=== PATIENT | male | born 1960 | race Caucasian/White ===

== ENCOUNTER 2017-10-30 11:57 | Emergency (ER) | payer MEDICARE ==
[2017-10-30 12:20] VITALS: BP 141/93
[2017-10-30] MEDS ORDERED: KETOROLAC TROMETHAMINE INJ/PF 30 MG/1 ML SDV IM ONE (13:04)
[2017-10-30] MEDS ORDERED: DEXAMETHASONE SOD PHOS INJ 10 MG/1 ML VIAL IM ONE (13:04)
--- NOTE | 2017-10-30 13:05 | ER Document Report ---
HPI - HPI Pain Level: 5 Notes: Patient is a 57-year-old male with a history of chronic low back pain who presents to the ED complaining of acute on chronic pain status post injury 3 days ago. Patient states that he was moving furniture and was lifting heavy objects when he first noticed his pain. Patient states that the pain is to his lower back that is made worse by truncal movements, bending, and twisting. Patient states that the pain does not radiate. He has not had any loss of control bowel or bladder. He is eating and drinking without difficulties. He is urinating normally and having normal bowel movements. He denies any surgeries or injections in his back. Denies any IV drug use. Denies any history of diabetes or other immunocompromised medical conditions as well as previous spinal abscess. Patient does admit to smoking. Patient moved to the area from [place]. Denies any headache, fever, URI, sore throat, chest pain, palpitations, syncope, cough, shortness of breath, wheeze, dyspnea, abdominal pain, nausea/vomiting/diarrhea, urinary retention, dysuria, hematuria, loss of control of bowel or bladder, numbness/tingling, saddle anesthesia, muscle paralysis/weakness, or rash. - ROS Systems Reviewed and Negative: Yes All other systems reviewed and negative Past Medical History - Social History Smoking Status: Current Every Day Smoker Family History: Reviewed & Not Pertinent Vertical Provider Document - CONSTITUTIONAL Agree With Documented VS: Yes Notes: PHYSICAL EXAMINATION: GENERAL: Well-appearing, well-nourished and in no acute distress. LUNGS: Breath sounds clear to auscultation bilaterally and equal. No wheezes rales or rhonchi. HEART: Regular rate and rhythm without murmurs, rubs, gallops. ABDOMEN: Soft, nontender, nondistended abdomen. No guarding, no rebound. No masses appreciated. Normal bowel sounds present. No CVA tenderness bilaterally. No pulsatile mass Musculoskeletal: LE's b/l: FROM to passive/active. Strength 5+/5. No deficits noted. No bony tenderness of extremities. Back: LROM to passive/active to flexion/extension due to discomfort. Strength 5+/5. No vertebral point tenderness, stepoffs, or deformities. No other bony tenderness, erythema, swelling, or ecchymosis. SLR negative b/l. + mild tenderness to the L-paraspinal mm b/l (correlates with pain described). Mild spasming. No SI jt tenderness. No foot drop Extremities: No cyanosis, clubbing, or edema b/l. Peripheral pulses 2+. Capillary refill less than 2 seconds. NEUROLOGICAL: Normal speech, ataxic gait. Normal sensory, motor exams. Reflexes 2+ b/l. PSYCH: Normal mood, normal affect. SKIN: Warm, Dry, normal turgor, no rashes or lesions noted. - INFECTION CONTROL TRAVEL OUTSIDE OF THE [place] IN LAST 30 DAYS: No Course - Re-evaluation Re-evalutation: 10/30/17 13:11 Patient is an afebrile, well-hydrated, 57-year-old male who presents to the ED with acute on chronic low back pain, suspect muscle strain. Vitals are acceptable. PE is otherwise unremarkable for any focal neurological deficits. Patient is nontoxic-appearing. Patient has no significant tachycardia, hypoxia , or tachypnea. No labs or imaging warranted at this time based on H&P. Low suspicion for any meningitis, fracture, expanding/ruptured AAA, cauda equina syndrome, epidural mass lesion/abscess, herniated disc causing severe spinal stenosis, or other systemic infection at this time. Patient is aware that his condition can change from initial presentation and that he needs monitor symptoms closely for any acute changes. Patient given Toradol and Decadron today. I will send him home with a prescription for naproxen and baclofen. Conservative measures otherwise for symptoms. Recheck with your PCM in 3-5 days. Consider consult with orthopedic/physical therapy. Return to the ED with any worsening/concerning symptoms otherwise as reviewed discharge. Patient is in agreement. - Vital Signs Vital signs: Temp Pulse Resp BP Pulse Ox 98.3 F 88 18 141/93 H 97 10/30/17 12:18 10/30/17 12:18 10/30/17 12:18 10/30/17 12:18 10/30/17 12:18 Discharge - Discharge Clinical Impression: Low back pain Qualifiers: Chronicity: acute Back pain laterality: bilateral Sciatica presence: without sciatica Qualified Code(s): M54.5 - Low back pain Condition: Stable Disposition: HOME, SELF-CARE Instructions: Low Back Pain ([facility]), Muscle Strain ([facility]), Stretching Exercises for the Back ([facility]) Additional Instructions: Rest, Ice, Compression, Elevation Tylenol/ibuprofen as needed Light stretches daily Strength exercises as able Moist heat and massage may help F/u with your PCP in 3-5 days for a recheck Consider consult(s) with Orthopedics/physical therapy for ongoing/worsening symptoms Return to the ED with any worsening symptoms and/or development of fever, headache, chest pain, palpitations, syncope, shortness of breath, trouble breathing, abdominal pain, n/v/d, blood in stool/urine, loss of control of bowel /bladder, urinary retention, muscle weakness/paralysis, saddle anesthesia, numbness/tingling, or other worsening symptoms that are concerning to you. Prescriptions: Baclofen [Baclofen 10 mg Tablet] 5 - 10 mg PO BID PRN #10 tablet PRN Reason: Naproxen 500 mg PO BID PRN #30 tablet PRN Reason: Forms: Elevated Blood Pressure, Smoking Cessation Education Referrals: [facility] [Provider Group] - Follow up as needed
== END 2017-10-30 13:44 | disposition home or self-care (01) ==
LOC: ER 11:57
DX: G89.29 Other chronic pain (principal); M54.5 Low back pain; F17.200 Nicotine dependence, unspecified, uncomplicated
CPT/HCPCS: 99283; 96372; J1885; J1100

== ENCOUNTER 2017-12-18 19:08 | Observation (INO) | payer MEDICARE ==
--- NOTE | 2017-12-18 19:45 | ER Document Report ---
ED Medical Screen (RME) - General Chief Complaint: Abdominal Pain Stated Complaint: ABDOMINAL PAIN Time Seen by Provider: 12/18/17 19:41 Notes: RAPID MEDICAL EVALUATION DISCLOSURE I have seen this patient as part of a Rapid Medical Evaluation and, if applicable, placed any initially appropriate orders. The patient will be seen and fully evaluated, including a full history and physical exam, by a provider ( in Main ED or Fast Track) when a room becomes available. 57-year-old male PMH coronary disease here with complaints of chest pain nonradiating that started earlier this morning. He has also had associated shortness of breath nausea vomiting epigastric pain and hiccups. He has not tried anything for the symptoms but states that he just got his Zantac refilled 30 minutes prior to arrival. Denies any prior history of pancreatitis. EXAM CTAB RRR Mild epigastric TTP TRAVEL OUTSIDE OF THE [place] IN LAST 30 DAYS: No - Related Data Allergies/Adverse Reactions: tramadol Allergy (Verified 12/18/17 19:09) Past Medical History - Social History Chew tobacco use (# tins/day): No Frequency of alcohol use: Rare Drug Abuse: None Renal/ Medical History: Denies: Hx Peritoneal Dialysis Physical Exam - Vital signs Vitals: Temp Pulse Resp BP Pulse Ox 98.0 F 72 22 H 149/90 H 97 12/18/17 19:21 12/18/17 19:21 12/18/17 19:21 12/18/17 19:21 12/18/17 19:21 Course - Vital Signs Vital signs: Temp Pulse Resp BP Pulse Ox 98.0 F 72 22 H 149/90 H 97 12/18/17 19:21 12/18/17 19:21 12/18/17 19:21 12/18/17 19:21 12/18/17 19:21
[2017-12-18] MEDS ORDERED: LIDOCAINE 2% VISCOUS SOLN 20 ML UDCUP PO ONE (19:54)
[2017-12-18] MEDS ORDERED: MAG HYDROX/AL HYDROX/SIMETH SUSP 30 ML UDCUP PO ONE (20:12)
[2017-12-18 20:27] LABS: ABSOLUTE EOSINOPHILS # (AUTO) 0.1 10^3/uL (0.0-0.6); ABSOLUTE LYMPHOCYTES (AUTO) 1.2 10^3/uL (0.5-4.7); ABSOLUTE MONOCYTES (AUTO) 0.6 10^3/uL (0.1-1.4); ABSOLUTE NEUT (AUTO) 6.3 10^3/uL (1.7-8.2); BASOPHILS % (AUTO) 0.6 % (0-2); EOSINOPHILS % (AUTO) 0.8 % (0-6); HEMATOCRIT 50.3 % (37.9-51.0); HEMOGLOBIN 16.9 g/dL (13.5-17.0); LYMPHOCYTES % (AUTO) 15.1 % (13-45); MEAN CORPUSCULAR HEMOGLOBIN 31.8 pg (27.0-33.4); MEAN CORPUSCULAR HGB CONC 33.6 g/dL (32.0-36.0); MEAN CORPUSCULAR VOLUME 95 fl (80-97); MONOCYTES % (AUTO) 6.9 % (3-13); PLATELET COUNT 257 10^3/uL (150-450); RED BLOOD COUNT 5.31 10^6/uL (4.35-5.55); RED CELL DISTRIBUTION WIDTH 13.5 % (11.5-14.0); SEGMENTED NEUTROPHILS % (AUTO) 76.6 % (42-78); TOTAL CELLS COUNTED % (AUTO) 100 %; WHITE BLOOD COUNT 8.3 10^3/uL (4.0-10.5)
[2017-12-18 20:40] LABS: ALANINE AMINOTRANSFERASE 22 U/L (21-72); ALBUMIN 4.6 g/dL (3.5-5.0); ALKALINE PHOSPHATASE 88 U/L (38-126); ANION GAP 11 (5-19); ASPARTATE AMINO TRANSFERASE 18 U/L (17-59); BILIRUBIN,DIRECT 0.3 mg/dL (0.0-0.4); BILIRUBIN,TOTAL 0.7 mg/dL (0.2-1.3); BLOOD UREA NITROGEN 14 mg/dL (7-20); CALCIUM 10.2 mg/dL (8.4-10.2); CARBON DIOXIDE 32 mmol/L (22-30); CHLORIDE 103 mmol/L (98-107); GLUCOSE 113 mg/dL (75-110); LIPASE 120.6 U/L (23-300); POTASSIUM 4.4 mmol/L (3.6-5.0); SODIUM 145.9 mmol/L (137-145); TOTAL PROTEIN 7.6 g/dL (6.3-8.2)
--- NOTE | 2017-12-18 21:00 | RADIOLOGY REPORT (SQ) ---
EXAM DESCRIPTION: ACUTE ABDOMEN SERIES COMPLETED DATE/TIME: 12/18/2017 8:33 pm REASON FOR STUDY: chest and epigastric pain COMPARISON: None. NUMBER OF VIEWS: Three views. TECHNIQUE: Frontal chest, supine abdomen and upright/decubitus abdomen radiographic images acquired. LIMITATIONS: None. FINDINGS: CHEST: Lungs clear of infiltrates. Chronic appearing interstitial changes with scarring i n the left costophrenic angle. FREE AIR: None. No abnormal gas collections. BOWEL GAS PATTERN: Nonobstructive pattern. No dilated loops or air fluid levels. CALCIFICATIONS: No suspicious calcifications. HARDWARE: None in the abdomen. Coronary bypass hardware in the chest SOFT TISSUES: No gross mass or suggestion of organomegaly. BONES: No acute fracture. No worrisome bone lesions. OTHER: No other significant finding. IMPRESSION: NO RADIOGRAPHIC EVIDENCE FOR ACUTE ABDOMINAL DISEASE. TECHNICAL DOCUMENTATION: JOB ID: [id number] [employer]- All Rights Reserved Reading location - IP/workstation name: [email or web address]
--- NOTE | 2017-12-18 22:47 | ER Document Report ---
ED General - General Chief Complaint: Abdominal Pain Stated Complaint: ABDOMINAL PAIN Time Seen by Provider: 12/18/17 19:41 Notes: Patient is a 57-year-old male with a history of coronary disease who presents with complaint of pain that is in the lower chest and epigastrium and radiates up into the chest. He describes pain as sharp. Spleen ongoing all day and is felt short of breath with the. Some nausea but no vomiting. No fevers. He is a smoker. He had a triple-vessel bypass in 2010. He says be on medications for high blood pressure and high cholesterol. He has not been taking those for close to months being that he moved here a month ago. He says he was going to establish himself with Dr. Ward but he did not yet have a medical card and therefore has not been able to see Dr. Burnett yet and has not yet established himself with Dr. Burnett. Patient has been without medications now for over a week. He does smoke. He says the pain is having now feels exactly like the pain he had when he had his heart attack in 2010. No heart cath or stress test since 2010. TRAVEL OUTSIDE OF THE [place] IN LAST 30 DAYS: No - Related Data Allergies/Adverse Reactions: tramadol Allergy (Verified 12/18/17 19:09) Past Medical History - Social History Smoking Status: Current Every Day Smoker Chew tobacco use (# tins/day): No Frequency of alcohol use: Rare Drug Abuse: None Family History: Reviewed & Not Pertinent Patient has suicidal ideation: No Patient has homicidal ideation: No - Past Medical History Cardiac Medical History: Reports: Hx Heart Attack, Hx Hypertension Pulmonary Medical History: Reports: Hx COPD Renal/ Medical History: Denies: Hx Peritoneal Dialysis GI Medical History: Reports: Hx Gastroesophageal Reflux Disease Past Surgical History: Reports: Hx Cardiac Surgery - bipass Review of Systems - Review of Systems Notes: My Normal Review Basic REVIEW OF SYSTEMS: CONSTITUTIONAL : Denies fever, chills, or sweats. Denies recent illness. EENT: Denies eye, ear, throat, or mouth pain or symptoms. Denies nasal or sinus congestion. CARDIOVASCULAR: Has chest pain RESPIRATORY: Denies cough, cold, or chest congestion. Denies shortness of breath, difficulty breathing, or wheezing. GASTROINTESTINAL: Gastric abdominal pain. Denies nausea, vomiting, or diarrhea. GENITOURINARY: Denies difficulty urinating, painful urination, burning, frequency, or blood in urine. MUSCULOSKELETAL: Denies neck or back pain or joint pain or swelling. SKIN: Denies rash or skin lesions. NEUROLOGICAL: Denies altered mental status or loss of consciousness. Denies headache. Denies weakness or paralysis or loss of use of either side. Denies problems with gait or speech. Denies sensory or motor loss. ALL OTHER SYSTEMS REVIEWED AND NEGATIVE. Physical Exam - Vital signs Vitals: Temp Pulse Resp BP Pulse Ox 98.0 F 72 22 H 149/90 H 97 12/18/17 19:21 12/18/17 19:21 12/18/17 19:21 12/18/17 19:21 12/18/17 19:21 - Notes Notes: General Appearance: Well nourished, alert, cooperative, no acute distress, no obvious discomfort. Vitals: reviewed, See vital signs table. Head: no swelling or tenderness to the head Eyes: PERRL, EOMI, Conjuctiva clear Mouth: No decreasd moisture Lungs: No wheezing, No rales, No rhonci, No accessory muscle use, good air exchange bilaterally. Heart: Normal rate, Regular rythm, No murmur, no rub Chest wall: No tenderness to palpation of chest wall. Abdomen: Normal BS, soft, No rigidity, epigastric abdominal tenderness, No guarding, no rebound, no abdominal masses, no organomegaly Extremities: strength 5/5 in all extremities, good pulses in all extremities, no swelling or tenderness in the extremities, no edema. Skin: warm, dry, appropriate color, no rash Neuro: speech clear, oriented x 3, normal affect, responds appropriately to questions. Course - Re-evaluation Re-evalutation: 12/19/17 00:29 Patient continues have chest pain despite the nitro. We therefore repeated the troponin has remained normal. I did speak with hospitalist, Dr. Gant, agrees with the patient. I did not call Dr. Ward this patient has not yet seen Dr. Ward and has not yet established himself with Dr. Ward as of yet. Patient's pain seems atypical and that is epigastric radiating up into his chest; however, patient has had similar pains in 2010 when his heart attack. Therefore feel that admission for observation and rule out is appropriate. Dictation of this chart was performed using voice recognition software; therefore, there may be some unintended grammatical errors. - Vital Signs Vital signs: Temp Pulse Resp BP Pulse Ox 98.0 F 72 22 H 149/90 H 97 12/18/17 19:21 12/18/17 19:21 12/18/17 19:21 12/18/17 19:21 12/18/17 19:21 - Laboratory Result Diagrams: 12/18/17 20:10 12/18/17 20:10 Laboratory results interpreted by me: 12/18/17 20:10 Sodium 145.9 H Carbon Dioxide 32 H Glucose 113 H - EKG Interpretation by Me Additional EKG results interpreted by me: 12/18/17 22:46 EKG is reviewed and interpreted by me. EKG shows normal sinus rhythm with a rate of [address] segment elevation or depression. No ischemic T-wave inversions. SD interval, QRS duration are within normal range. QTc interval is prolonged. No old EKG available for comparison. Discharge - Discharge Clinical Impression: Chest pain Qualifiers: Chest pain type: unspecified Qualified Code(s): R07.9 - Chest pain, unspecified Condition: Stable Disposition: ADMITTED OBSERVATION Admitting Provider: Hospitalist Unit Admitted: Telemetry
[2017-12-18] MEDS ORDERED: NITROGLYCERIN 2% OINTMENT 1 GM PACKET TP ONE (22:54)
[2017-12-19] MEDS ORDERED: ASPIRIN 325 MG TABLET PO ONE (00:17)
[2017-12-19] MEDS ORDERED: MORPHINE SULFATE 10 MG/ML INJ IV ONE (00:17)
[2017-12-19] MEDS ORDERED: HYDRALAZINE HCL INJ/PF 20 MG/1 ML SDV IV PRN (00:27)
[2017-12-19] MEDS ORDERED: LACTULOSE SYRUP 20 GM/30 ML UDCUP PO ONE (00:27)
[2017-12-19] MEDS ORDERED: NITROGLYCERIN 0.4 MG/TAB 25 TAB/BOTTLE SL PRN (00:29)
[2017-12-19] MEDS ORDERED: ATORVASTATIN CALCIUM 80 MG TABLET PO ONE (00:45)
[2017-12-19] MEDS ORDERED: PROMETHAZINE HCL 25 MG TABLET PO ONE (01:14)
--- NOTE | 2017-12-19 02:06 | PDOC H&P ---
History of Present Illness Admission Date/PCP: 12/19/17 00:42 Patient complains of: Chest and abdominal pain History of Present Illness: JAMEEL HORN is a 57 year old male with history of quadruple bypass 2011, gastritis, with ongoing tobacco dependence and medication noncompliance greater than 2 months. Patient presents with 18 hours of intermittent chest and abdominal pain associated with dyspepsia, burping and gas. It is dull in nature 3 out of 5 intensity waxing and waning. Patient had no relief from Zantac or sublingual nitroglycerin. Initial workup is unremarkable with exception to an abdominal series showing constipation. He is referred to the hospitalist for admission. Past Medical History Cardiac Medical History: Reports: Coronary Artery Disease, Myocardial Infarction , Hypertension Pulmonary Medical History: Reports: Chronic Obstructive Pulmonary Disease (COPD) GI Medical History: Reports: Gastroesophageal Reflux Disease Past Surgical History Past Surgical History: Reports: Coronary Artery Bypass Graft Social History Information Source: Patient Smoking Status: Current Every Day Smoker Frequency of Alcohol Use: None - Advance Directive Resuscitation Status: Full Code Family History Family History: CAD, COPD Parental Family History Reviewed: Yes Children Family History Reviewed: Yes Sibling(s) Family History Reviewed.: Yes Medication/Allergy Home Medications: Baclofen [Baclofen 10 mg Tablet] 5 - 10 mg PO BID PRN #10 tablet 10/30/17 Naproxen 500 mg PO BID PRN #30 tablet 10/30/17 Allergies/Adverse Reactions: tramadol Allergy (Verified 12/18/17 19:09) Review of Systems Constitutional: ABSENT: chills, fever(s), headache(s), weight gain, weight loss Eyes: ABSENT: visual disturbances Ears: ABSENT: hearing changes Cardiovascular: ABSENT: chest pain, dyspnea on exertion, edema, orthropnea, palpitations Respiratory: ABSENT: cough, hemoptysis Gastrointestinal: ABSENT: abdominal pain, constipation, diarrhea, hematemesis, hematochezia, nausea, vomiting Genitourinary: ABSENT: dysuria, hematuria Musculoskeletal: ABSENT: joint swelling Integumentary: ABSENT: rash, wounds Neurological: ABSENT: abnormal gait, abnormal speech, confusion, dizziness, focal weakness, syncope Psychiatric: ABSENT: anxiety, depression, homidical ideation, suicidal ideation Endocrine: ABSENT: cold intolerance, heat intolerance, polydipsia, polyuria Hematologic/Lymphatic: ABSENT: easy bleeding, easy bruising Physical Exam Vital Signs: Temp Pulse Resp BP Pulse Ox 98.0 F 72 22 H 149/90 H 97 12/18/17 19:21 12/18/17 19:21 12/18/17 19:21 12/18/17 19:21 12/18/17 19:21 General appearance: PRESENT: no acute distress, well-developed, well-nourished Head exam: PRESENT: atraumatic, normocephalic Eye exam: PRESENT: conjunctiva pink, EOMI, PERRLA. ABSENT: scleral icterus Ear exam: PRESENT: normal external ear exam Mouth exam: PRESENT: moist, tongue midline Neck exam: ABSENT: carotid bruit, JVD, lymphadenopathy, thyromegaly Respiratory exam: PRESENT: clear to auscultation jada. ABSENT: rales, rhonchi, wheezes Cardiovascular exam: PRESENT: RRR. ABSENT: diastolic murmur, rubs, systolic murmur Pulses: PRESENT: normal dorsalis pedis pul Vascular exam: PRESENT: normal capillary refill GI/Abdominal exam: PRESENT: diminished bowel sounds, hypoactive bowel sounds, normal bowel sounds, soft, tenderness. ABSENT: ascites, distended, guarding, mass, organolmegaly, rebound Rectal exam: PRESENT: deferred Extremities exam: PRESENT: full ROM. ABSENT: calf tenderness, clubbing, pedal edema Neurological exam: PRESENT: alert, awake, oriented to person, oriented to place , oriented to time, oriented to situation, CN II-XII grossly intact. ABSENT: motor sensory deficit Psychiatric exam: PRESENT: appropriate affect, normal mood. ABSENT: homicidal ideation, suicidal ideation Skin exam: PRESENT: dry, intact, warm. ABSENT: cyanosis, rash Results Impressions: Acute Abdomen Series 12/18/17 19:44 IMPRESSION: NO RADIOGRAPHIC EVIDENCE FOR ACUTE ABDOMINAL DISEASE. Assessment & Plan - Diagnosis (1) Chest pain Qualifiers: Chest pain type: unspecified Qualified Code(s): R07.9 - Chest pain, unspecified Is this a current diagnosis for this admission?: Yes Plan: Atypical chest pain though the patient's pain is atypical there are multiple risk factors for coronary artery disease and subsequently will observe and evaluation of acute coronary syndrome versus coronary artery disease with anginal equivalents. Cardiac monitoring blood pressure Q6 hours ,TSH, lipid profile, serial cardiac enzymes and cardiac stress test (2) Abdominal pain Is this a current diagnosis for this admission?: Yes Plan: Likely secondary to constipation, lactulose trial initiated (3) Tobacco abuse Is this a current diagnosis for this admission?: Yes Plan: Tobacco Dependence patient received tobacco cessation counseling and offered nicotine replacement options - Time Time Spent: 30 to 50 Minutes
[2017-12-19] MEDS ORDERED: KETOROLAC TROMETHAMINE INJ/PF 30 MG/1 ML SDV IV ONE (05:00)
[2017-12-19 07:28] LABS: TROPONIN I < 0.012 ng/mL
--- NOTE | 2017-12-19 07:45 | EKG REPORT ---
SEVERITY:- ABNORMAL ECG - SINUS RHYTHM PROBABLE LEFT ATRIAL ABNORMALITY INFERIOR INFARCT, AGE INDETERMINATE LATERAL LEADS ARE ALSO INVOLVED BORDERLINE PROLONGED QT INTERVAL : Confirmed by: Edmund Cruz MD 19-Dec-2017 07:45:01
[2017-12-19] MEDS ORDERED: PROMETHAZINE HCL INJ 25 MG/1 ML VIAL ONE (11:11)
[2017-12-19] MEDS: DOCUSATE SODIUM 100 MG CAPSULE PO SCH (11:12)
[2017-12-19 12:49] LABS: CREATINE KINASE MB 0.36 ng/mL (<4.55)
[2017-12-19 12:52] LABS: TROPONIN I < 0.012 ng/mL
[2017-12-19] MEDS ORDERED: REGADENOSON INJ 0.4 MG/5 ML DISP.SYRIN IV ONE (13:29)
[2017-12-19] MEDS ORDERED: MAG HYDROX/AL HYDROX/SIMETH SUSP 30 ML UDCUP PO ONE (14:58)
[2017-12-19] MEDS ORDERED: LIDOCAINE 2% VISCOUS SOLN 20 ML UDCUP PO ONE (14:58)
[2017-12-19] MEDS: HYDROCODONE/ACETAMINOPHEN 7.5-325 MG TABLET PO PRN ×2 (15:07→22:05)
[2017-12-19] MEDS: PROMETHAZINE HCL INJ 25 MG/1 ML VIAL IV PRN ×2 (15:18→22:05)
[2017-12-19] MEDS: LANSOPRAZOLE 30 MG TAB.RAP.DR PO SCH (17:40)
--- NOTE | 2017-12-19 17:57 | DRAGON STRESS TEST REPORT ---
INTRAVENOUS LEXISCAN CARDIOLITE STRESS TEST USING SINGLE PHOTON EMMISION COMPUTERIZED TOMOGRAPHIC. DATE OF PROCEDURE: December 19, 2017 INDICATION : Chest pain CARDIAC RISK FACTORS: Known CAD with previous CABG, tobacco abuse RESTING EKG: Sinus rhythm, abnormal Q waves inferior and lateral chest leads indicative of inferolateral myocardial infarction STRESS EKG: No significant ST segment changes noted with LexiScan bolus REASON FOR TERMINATION: Protocol. PROCEDURE REPORT: Baseline heart rate 67 beats per minute with blood pressure of 126/82. Patient had no significant complaints. Patient was bolused with Lexiscan 0.4 mg intravenously followed by saline bolus. Heart rate at 2 minutes post bolus 100 with a blood pressure of 109/74. 3 minutes post bolus heart rate 96 with blood pressure of 122/79. No significant EKG changes were noted. Patient had no significant complaints during the procedure or postprocedure. CONCLUSIONS: Normal EKG and hemodynamic response to IV LexiScan. NUCLEAR DATA: At rest the patient was given 15.22 millicuries of technetium 99 sestamibi injected intravenously. As per protocol rest gated SPECT images were obtained. On day of stress test, the patient was given intravenous LexiScan at a dose of 0.4 mg in 5 mL intravenously, followed by flush with normal saline. Subsequently the stress dose of 42.8 millicuries of technetium 99 sestamibi was injected intravenously. As per protocol stress gated images were obtained. NUCLEAR INTERPRETATION: Both raw and processed data were used for interpretation. Visual, qualitative, computer-generated quantitative data was used. There was good myocardial uptake of technetium compound. Motion artifact and soft tissue attenuations were noted. Increased visceral uptake was noted. No definitive areas of transient perfusion defect noted, severe fixed defect noted involving the inferolateral and lateral wall of the left ventricle. May be minimal area of surrounding transient perfusion defect. EKG gated imaging showed LV EF at 25 %, rest and stress gated EF similar visually diffuse hypokinesia with more marked inferolateral hypokinesia noted. T. I D. ratio was 1.41 but visually seems not significant. Lung heart ratio noted to be within normal limits 0.39. No significant extracardiac and abnormal radiotracer activities were noted. RV free wall uptake was noted to be WNL. IMPRESSION: Also refer to comments under nuclear interpretation. Also test results needs to be interpreted in the context of pretest probability. 1. No definitive areas of transient perfusion defect noted. 2. Severe fixed defect noted involving the inferolateral and lateral wall of the left ventricle. This is indicative of a prior myocardial infarction. 3. EKG gated imaging shows left ventricular ejection fraction of approx. 25 %. Inferolateral and lateral wall hypokinesia noted. Computer-generated TID ratio is abnormal but visually did not seem significant. 4. Clinical correlation requested as occasionally single vessel disease or balanced ischemia could be missed. In approximately 10% of the cases Lexiscan may not cause adequate vasodilatory stress. RECOMMENDATIONS: Aggressive risk factor modification and medical management. Further evaluation may be needed if continued symptoms or other high risk indicators are noted on clinical evaluation. Close cardiology follow-up is also recommended. Clinical correlation with echocardiogram derived ejection fraction. Inability to exercise by itself can lead to increased cardiovascular event risks. Consider cardiology consultation and or follow-up if clinically indicated. I am available for cardiology evaluation and consultation if requested by the manager of medical, unless patient already has a unload associate. TIESHA
[2017-12-19 18:18] LABS: CREATINE KINASE MB 0.28 ng/mL (<4.55)
[2017-12-19 18:21] LABS: TROPONIN I < 0.012 ng/mL
--- NOTE | 2017-12-19 19:15 | PDOC PROGRESS REPORT ---
Subjective Progress Note for:: 12/19/17 Subjective:: He complained of very severe epigastric pain earlier today. He says he has had this for quite some time and that he takes Zantac for it when he needs to. I started him on some Prevacid and gave him some Maalox to good effect. Reason For Visit: CHEST AND ABD PAIN CAD Physical Exam Vital Signs: Temp Pulse Resp BP Pulse Ox 98.3 F 60 16 125/79 96 12/19/17 13:12 12/19/17 15:00 12/19/17 13:12 12/19/17 13:12 12/19/17 13:12 Intake & Output 12/18/17 12/19/17 12/20/17 05:59 05:59 05:59 Weight 204 lb 15.42 oz 204 lb 12.951 oz Results Laboratory Results: 12/19/17 12/19/17 12/19/17 06:00 11:30 17:25 CK-MB (CK-2) 0.40 0.36 0.28 Troponin I < 0.012 < 0.012 < 0.012 Impressions: Acute Abdomen Series 12/18/17 19:44 IMPRESSION: NO RADIOGRAPHIC EVIDENCE FOR ACUTE ABDOMINAL DISEASE. Assessment & Plan - Diagnosis (1) Abdominal pain Qualifiers: Abdominal location: epigastric Qualified Code(s): R10.13 - Epigastric pain Is this a current diagnosis for this admission?: Yes Plan: Sounds like he has gastritis due to NSAIDs. I will put him on scheduled PPI therapy (2) Chest pain Qualifiers: Chest pain type: unspecified Qualified Code(s): R07.9 - Chest pain, unspecified Is this a current diagnosis for this admission?: Yes Plan: I think the pain that he came in with is really from his stomach. However, the stress test showed significant cardiomyopathy. He is not on any medications, though he has a history of coronary artery disease. I do not know what his baseline is. I will start him on an SALINA inhibitor, beta-oh, get an echo since the nuclear study can significantly understate ejection fraction, and consult cardiology. (3) Tobacco abuse Is this a current diagnosis for this admission?: Yes Plan: Nicotine replacement (4) CAD (coronary artery disease) Is this a current diagnosis for this admission?: Yes Plan: History of coronary artery bypass in 2010. Not on any medications, does not appear to be following with a medical chemist.
[2017-12-19] MEDS ORDERED: NICOTINE 21 MG/24 HR PATCH.TD24 TD SCH (20:00)
--- NOTE | 2017-12-19 20:37 | PDOC CONSULTATION ---
Consultation Consult Date: 12/19/17 Attending physician:: MARIMAR WILKERSON Consult reason:: Depressed LVEF History of Present Illness Admission Date/PCP: 12/19/17 00:42 Patient complains of: Epigastric discomfort History of Present Illness: JAMEEL HORN is a 57 year old male with history of quadruple bypass 2010, gastritis, with ongoing tobacco dependence and medication noncompliance greater than 2 months. Patient presents with 18 hours of intermittent chest and abdominal pain associated with dyspepsia, burping and gas. It is dull in nature 3 out of 5 intensity waxing and waning. Patient had no relief from Zantac or sublingual nitroglycerin. Initial workup is unremarkable with exception to an abdominal series showing constipation. He is referred to the hospitalist for admission. This history obtained by the hospitalist was reviewed and confirmed with the patient. Patient is denying any chest pain. Patient does describe history of intermittent dizziness and occasional palpitations. Patient describes history of prior myocardial infarction and also coronary artery bypass graft surgery in 2010 with four-vessel bypass. Patient tells me that he had a previous echocardiogram sometime ago at an outside institution where he was told to have weak heart muscles. He was being considered for defibrillator placement but he declined any mechanical stuff in his body. He understands that because of weak heart, he is at increased risk of sudden cardiac but he still does not want to consider defibrillator placement at this time. Patient tells me that his previous customer service representative teacher was adjusting medication to his strength in his heart but he ran out of his medication. Patient surrogate decision maker is his Past Medical History Cardiac Medical History: Reports: Coronary Artery Disease, Myocardial Infarction , Hypertension Pulmonary Medical History: Reports: Chronic Obstructive Pulmonary Disease (COPD) GI Medical History: Reports: Gastroesophageal Reflux Disease Past Surgical History Past Surgical History: Reports: Coronary Artery Bypass Graft Social History Information Source: Patient Smoking Status: Current Every Day Smoker Frequency of Alcohol Use: None Drugs: None - Advance Directive Resuscitation Status: Full Code Surrogate healthcare decision maker:: Patient's is the surrogate decision-maker Family History Family History: CAD, COPD Parental Family History Reviewed: Yes Children Family History Reviewed: Yes Sibling(s) Family History Reviewed.: Yes Medication/Allergy Home Medications: Baclofen [Baclofen 10 mg Tablet] 10 mg PO BIDP PRN 12/19/17 Aspirin [Aspirin 81 mg Chewable Tablet] 81 mg PO DAILY tab.chew 12/20/17 Atorvastatin Calcium [Lipitor 80 mg Tablet] 80 mg PO QHS #30 tablet 12/20/17 Carvedilol [Coreg 6.25 mg Tablet] 6.25 mg PO Q12 #60 tablet 12/20/17 Lisinopril [Prinivil 10 mg Tablet] 10 mg PO DAILY #30 tablet 12/20/17 Metoclopramide HCl [Reglan 10 mg Tablet] 5 mg PO ACHS #60 tablet 12/20/17 Nicotine [Nicoderm 21 mg/24 Hr Transderm Patch] 1 each TD DAILY@2000 patch.td24 12/20/17 Promethazine HCl [Phenergan 25 mg Supp.rect] 1 supp LA Q6H PRN #12 supp.rect Ranitidine HCl [Zantac 150 mg Tablet] 150 mg PO BID #60 tablet 12/20/17 Allergies/Adverse Reactions: tramadol Allergy (Verified 12/18/17 19:09) Review of Systems Review of Systems: Please see history of present illness and past medical history as wall. Constitutional: No fever or chills reported. Head : No recent chronic headaches, recent head injury. Eyes: No recent eye pain, diplopia, redness, discharge, acute visual changes. Ears: No recent chronic ear pain, acute hearing loss, ear discharge. Oral cavity: No recent ulcerations, bleeding, oral cavity discomfort. Neck: No recent acute neck pain reported. Hematologic: No recent easy bruising or bleeding. Lymphatic: No recent lymph node enlargement reported. Cardiovascular system review: See history of present illness. Respiratory system review: No hemoptysis or blood clots in the lungs reported. Shortness of breath on exertion Gastrointestinal system review: Negative for any recent acute hematemesis, melena. Admitted with epigastric discomfort as noted in HPI. Genitourinary system review: No recent acute or chronic hematuria, flank pain, UTI etc. reported. Skin system review: Negative for any recent abnormal bruising, no rash, no pruritus reported. Neurologic: No prior history of strokes, mini strokes, seizure disorder. Psychologic: No history of major psychosis or major depression reported. Musculoskeletal: Minor aches and pains reported. No acute joint swelling reported. Endocrine: No recent polyuria, polydipsia, recent heat or cold intolerance. Physical Exam Vital Signs: Temp Pulse Resp BP Pulse Ox 98.5 F 62 16 122/72 96 12/19/17 16:24 12/19/17 16:24 12/19/17 16:24 12/19/17 16:24 12/19/17 16:24 Intake & Output 12/18/17 12/19/17 12/20/17 06:59 06:59 06:59 Intake Total 442 Balance 442 Weight 92.9 kg Exam: GENERAL: well-nourished and in no acute distress. Alert and oriented x3 HEAD: Atraumatic, normocephalic. EYES: Pupils equal round and reactive to light, extraocular movements intact, sclera anicteric, conjunctiva are normal. ENT: TMs normal, nares patent, oropharynx clear without exudates. Moist mucous membranes. No oral ulcerations or bleeding gums noted NECK: supple without lymphadenopathy. Trachea is central. No cervical or axillary lymphadenopathy noted. Carotids are 2+, JVD WNL LUNGS: Respiration seems nonlabored, no significant accessory muscle action noted. Breath sounds clear to auscultation bilaterally and equal noted. No wheezes rales or rhonchi noted. No significant dullness noted on percussion. CHEST: Palpation of the chest wall shows no significant chest wall tenderness. 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 ABDOMEN: Soft, no significant tenderness appreciated, normoactive bowel sounds. No guarding, no rebound. No rigidity noted . No masses appreciated. EXTREMITIES: Pedal pulses are 1-2+, no calf tenderness noted. No clubbing or cyanosis. negative pedal edema noted NEUROLOGICAL: Focused neurological exam showed no significant neurologic deficit. Normal speech, no focal weakness appreciated. PSYCH: Normal mood, normal affect. Judgment and insight within normal limits. SKIN: No significant ecchymosis, skin is noted to be warm. MUSCULOSKELETAL EXAM: No significant acute joint swelling noted. Results Laboratory Results: 12/19/17 12/19/17 12/19/17 06:00 11:30 17:25 CK-MB (CK-2) 0.40 0.36 0.28 Troponin I < 0.012 < 0.012 < 0.012 EKG Comments: Shows sinus rhythm with abnormal Q waves inferiorly and V6. No acute ST-T wave changes are noted. Impressions: Acute Abdomen Series 12/18/17 19:44 IMPRESSION: NO RADIOGRAPHIC EVIDENCE FOR ACUTE ABDOMINAL DISEASE. Assessment & Plan - Diagnosis (1) Cardiomyopathy Qualifiers: Cardiomyopathy type: ischemic Qualified Code(s): I25.5 - Ischemic cardiomyopathy Is this a current diagnosis for this admission?: Yes (2) CAD (coronary artery disease) Qualifiers: Coronary Disease-Associated Artery/Lesion type: unspecified vessel or lesion type [place] vs. transplanted heart: [place] heart Associated angina: angina presence unspecified Qualified Code(s): I25.10 - Atherosclerotic heart disease of [place] coronary artery without angina pectoris Is this a current diagnosis for this admission?: Yes (3) Abdominal pain Qualifiers: Abdominal location: epigastric Qualified Code(s): R10.13 - Epigastric pain Is this a current diagnosis for this admission?: Yes (4) Tobacco abuse Is this a current diagnosis for this admission?: Yes (5) Hypertension Qualifiers: Hypertension type: essential hypertension Qualified Code(s): I10 - Essential (primary) hypertension Is this a current diagnosis for this admission?: Yes (6) Dyslipidemia Is this a current diagnosis for this admission?: Yes (7) Chest pain Qualifiers: Chest pain type: unspecified Qualified Code(s): R07.9 - Chest pain, unspecified Is this a current diagnosis for this admission?: Yes - Notes Notes: Chest pain: This was 1 of patient's presenting complaint. This was evaluated by nuclear stress test and cardiac enzymes. So far cardiac enzymes have been negative. Nuclear stress test was negative for any definitive signs of ischemia. Patient was advised to report any recurrence of chest pain. So far there has been no recurrence since admission. Cardiomyopathy: Patient is noted to have severely depressed LVEF on EKG gated imaging. For further evaluation, a 2D echocardiogram has been scheduled with which I agree. Patient medical regimen will need to be optimized to help improve LVEF. Coronary artery disease: Patient is denying any chest pain. Nuclear stress test shows predominantly severe fixed defect. If patient has any recurrence of chest pain, may need to consider a heart catheterization. Epigastric discomfort: Possibly related to acute gastritis, distal esophagitis and other causes. Tobacco abuse: Patient has been advised to quit smoking. Hypertension: Recommend SALINA inhibitor/ARB. Recommend carvedilol therapy for both hypertension and LV systolic dysfunction. Blood pressure goal should be 135/85 or less. Hyperlipidemia: Patient will benefit from high potency statin therapy such as Lipitor at 80 or 40 mg at bedtime or Crestor at 20 or 40 mg at bedtime. Patient advised regular cardiology follow-up. - Time Time Spent: 30 to 50 Minutes - CODE STATUS was discussed, patient remains full code. Surrogate decision-maker patient's . Multiple medical problems were addressed. More than 50% of the time spent coordinating care, discussing management plans with involved caregivers. Management plans discussed with involved personnels. Medical decision making was of high complexity, patient' s has multiple comorbidities. Medications reviewed and adjusted accordingly: Yes
[2017-12-19] MEDS ORDERED: ATORVASTATIN CALCIUM 80 MG TABLET PO SCH (22:00)
[2017-12-19] MEDS ORDERED: CARVEDILOL 3.125 MG TABLET PO SCH (22:00)
[2017-12-19] MEDS ORDERED: LISINOPRIL 5 MG TABLET PO SCH (22:00)
[2017-12-20] MEDS ORDERED: LORAZEPAM INJ 2 MG/1 ML VIAL IV ONE (04:00)
[2017-12-20 05:15] LABS: CHOLESTEROL 235.16 mg/dL (0-200); TRIGLYCERIDES 103 mg/dL (<150)
[2017-12-20 05:25] LABS: DIRECT LDL 182 mg/dL (<100)
--- NOTE | 2017-12-20 05:50 | RADIOLOGY REPORT (SQ) ---
EXAM DESCRIPTION: CT HEAD WITHOUT IV CONTRAST CLINICAL HISTORY: 57 years Male, head ache, vomiting COMPARISON: None. TECHNIQUE: No contrast. Coronal and sagittal reformat. This exam was performed according to our departmental dose-optimization program, which includes automated exposure control, adjustment of the mA and/or kV according to patient size and/or use of iterative reconstruction technique. FINDINGS: No hemorrhage or infarct. No mass, mass effect, or midline shift. Brain and extra-axial structures appear intact. IMPRESSION: Normal CT of the head.
--- NOTE | 2017-12-20 05:53 | RADIOLOGY REPORT (SQ) ---
EXAM DESCRIPTION: CT ABDOMEN WITHOUT IV CONTRAST CLINICAL HISTORY: 57 years Male, nausea, vomiting Comparison: None. Technique: No contrast. Coronal and sagittal reformat. This exam was performed according to our departmental dose-optimization program, which includes automated exposure control, adjustment of the mA and/or kV according to patient size and/or use of iterative reconstruction technique.[facility]: Dose Right [facility]: CareDose [facility]: Dose Right [facility]: Teradose 4D [facility]: Motribe LIMITATIONS: None. Findings: Small atelectasis or scar of the right lower lobe. 2.4 cm emphysematous cyst of the right lower lobe. Infrarenal abdominal aortic aneurysm with transverse diameters of 3.1 x 2.8 cm. Follow-up recommended every three years. No free fluid in the abdomen. Splenule. Mild disc desiccation. Unenhanced lower thorax, abdominal structures including the gallbladder, and musculoskeleton appear otherwise grossly unremarkable. Impression: 1. No acute findings. 2. A 3.1 cm AAA. Follow-up recommended every three years.
[2017-12-20] MEDS: LANSOPRAZOLE 30 MG TAB.RAP.DR PO SCH (06:10)
[2017-12-20] MEDS: PROMETHAZINE HCL INJ 25 MG/1 ML VIAL IV PRN (09:51)
[2017-12-20] MEDS: DOCUSATE SODIUM 100 MG CAPSULE PO SCH (09:51)
[2017-12-20] MEDS: HYDROCODONE/ACETAMINOPHEN 7.5-325 MG TABLET PO PRN (09:51)
[2017-12-20] MEDS ORDERED: ASPIRIN 81 MG TABLET, CHEWABLE PO SCH (10:00)
[2017-12-20] MEDS ORDERED: CARVEDILOL 3.125 MG TABLET PO SCH (10:00)
[2017-12-20] MEDS ORDERED: METOCLOPRAMIDE HCL 10 MG TABLET PO SCH (11:00)
[2017-12-20 12:21] VITALS: BP 114/72
--- NOTE | 2017-12-20 15:48 | PDOC DISCHARGE SUMMARY ---
General - Admit/Disc Date/PCP Admission Date/Primary Care Provider: 12/19/17 00:42 Discharge Date: 12/20/17 - Discharge Diagnosis (1) Abdominal pain Is this a current diagnosis for this admission?: Yes Summary: Probably gastritis. Relieved with Zantac. I counseled him to avoid ibuprofen and naproxen, and gave him a fresh prescription for Zantac. (2) Chest pain Is this a current diagnosis for this admission?: Yes Summary: Serial cardiac enzymes were negative. Stress test showed no reversible ischemia , but a fixed anterior defect. Telemetry was unremarkable. Echocardiogram showed a left ventricular ejection fraction of 45%, so I started him on Coreg and lisinopril, and he will follow-up with Dr. Ferrer as an outpatient. (3) Tobacco abuse Is this a current diagnosis for this admission?: Yes Summary: Strongly counseled to quit. He is in the pre-contemplative phase. (4) CAD (coronary artery disease) Is this a current diagnosis for this admission?: Yes Summary: Status post CABG in 2010 at [facility] in [place]. - Additional Information Resuscitation Status: Full Code Discharge Diet: Cardiac Discharge Activity: Activity As Tolerated Prescriptions: Atorvastatin Calcium [Lipitor 80 mg Tablet] 80 mg PO QHS #30 tablet Carvedilol [Coreg 6.25 mg Tablet] 6.25 mg PO Q12 #60 tablet Lisinopril [Prinivil 10 mg Tablet] 10 mg PO DAILY #30 tablet Metoclopramide HCl [Reglan 10 mg Tablet] 5 mg PO ACHS #60 tablet Promethazine HCl [Phenergan 25 mg Supp.rect] 1 supp VT Q6H PRN #12 supp.rect PRN Reason: vomiting Ranitidine HCl [Zantac 150 mg Tablet] 150 mg PO BID #60 tablet Home Medications: Baclofen [Baclofen 10 mg Tablet] 10 mg PO BIDP PRN 12/19/17 Aspirin [Aspirin 81 mg Chewable Tablet] 81 mg PO DAILY tab.chew 12/20/17 Atorvastatin Calcium [Lipitor 80 mg Tablet] 80 mg PO QHS #30 tablet 12/20/17 Carvedilol [Coreg 6.25 mg Tablet] 6.25 mg PO Q12 #60 tablet 12/20/17 Lisinopril [Prinivil 10 mg Tablet] 10 mg PO DAILY #30 tablet 12/20/17 Metoclopramide HCl [Reglan 10 mg Tablet] 5 mg PO ACHS #60 tablet 12/20/17 Nicotine [Nicoderm 21 mg/24 Hr Transderm Patch] 1 each TD DAILY@2000 patch.td24 12/20/17 Promethazine HCl [Phenergan 25 mg Supp.rect] 1 supp VT Q6H PRN #12 supp.rect Ranitidine HCl [Zantac 150 mg Tablet] 150 mg PO BID #60 tablet 12/20/17 History of Present Illness Patient complains of: Chest pain History of Present Illness: JAMEEL HORN is a 57 year old male with history of quadruple bypass 2010, gastritis, with ongoing tobacco dependence and medication noncompliance greater than 2 months. Patient presents with 18 hours of intermittent chest and abdominal pain associated with dyspepsia, burping and gas. It is dull in nature 3 out of 5 intensity waxing and waning. Patient had no relief from Zantac or sublingual nitroglycerin. Initial workup is unremarkable with exception to an abdominal series showing constipation. He is referred to the hospitalist for admission. Hospital Course Hospital Course: He was monitored on telemetry, serial cardiac enzymes were negative 3, Lexiscan Cardiolite showed no reversible defect, but he did have a large anterior fixed perfusion defect. Gated nuclear study showed a markedly depressed ejection fraction, so I started him on an SALINA inhibitor and, got an echocardiogram, and consulted cardiology. His echo showed a left ventricular ejection fraction of about 45%, cardiology made no further medication adjustments were, and will follow with him as an outpatient. When I saw him his pain seemed to be more epigastric. He then revealed that he had been taking Zantac which she stated usually works and about 20 minutes. I put him on a PPI, and gave him some Maalox with resolution in his symptoms. He has had intermittent nausea which I have treated with Reglan to good effect. Physical Exam Vital Signs: Temp Pulse Resp BP Pulse Ox 98.0 F 72 16 114/72 95 12/20/17 12:00 12/20/17 12:00 12/20/17 12:00 12/20/17 12:00 12/20/17 12:00 Intake & Output 12/19/17 12/20/17 12/21/17 05:59 05:59 05:59 Intake Total 442 Balance 442 Weight 204 lb 15.42 oz 184 lb 4.903 oz General appearance: PRESENT: no acute distress, cooperative Respiratory exam: PRESENT: clear to auscultation jada Cardiovascular exam: PRESENT: RRR GI/Abdominal exam: PRESENT: soft, tenderness - Mild across the epigastrium Extremities exam: ABSENT: pedal edema, +1 edema Musculoskeletal exam: PRESENT: normal inspection Neurological exam: PRESENT: alert Psychiatric exam: PRESENT: appropriate affect Skin exam: PRESENT: dry, warm Results Laboratory Results: 12/20/17 04:10 Triglycerides 103 Cholesterol 235.16 H LDL Cholesterol Direct 182 H VLDL Cholesterol 21.0 HDL Cholesterol 45 12/19/17 12/19/17 12/19/17 06:00 11:30 17:25 CK-MB (CK-2) 0.40 0.36 0.28 Troponin I < 0.012 < 0.012 < 0.012 NT-Pro-B Natriuret Pep 12/19/17 17:25 CK-MB (CK-2) Troponin I NT-Pro-B Natriuret Pep 341 Impressions: Acute Abdomen Series 12/18/17 19:44 IMPRESSION: NO RADIOGRAPHIC EVIDENCE FOR ACUTE ABDOMINAL DISEASE. Head CT 12/20/17 00:00 IMPRESSION: Normal CT of the head. Qualifiers - * PATIENT BEING DISCHARGED WITH ANY OF THE FOLLOWING DIAGNOSIS: No - He did not have heart failure, but he was found to have an ejection fraction of 45%, so I discharged him on a beta-oh and an SALINA inhibitor. He was also started on aspirin and a statin.
--- NOTE | 2017-12-20 18:21 | XCELERA REPORT ---
[address] [address] Transthoracic Echocardiogram Report Name: JAMEEL HORN Age: 57 yrs Gender: Male : 1960 Patient Status: Inpatient Patient Location: [address] [place] [address] Study Date: 12/20/2017 10:47 AM Height: 69 in Weight: 204 lb BSA: 2.1 m2 Procedure: A complete two-dimensional transthoracic echocardiogram was performed (2D, M-mode, spectral and color flow Doppler). The study was technically adequate with some images being suboptimal in quality. Reason For Study: Decreased LVEF on nuc images Ordering Physician: MARIMAR WILKERSON Performed By: Chris Sylvester Interpretation Summary LV EF is 45% Left ventricular systolic function is mildly reduced. There is mild concentric left ventricular hypertrophy. The left ventricle is grossly normal size. Doppler measurements suggest pseudonormalized left ventricular relaxation, which is associated with grade II/IV or mild to moderate diastolic dysfunction There is inferior wall moderate hypokinesis There is posterior wall dyskinesis The right ventricle is grossly normal size. The right ventricular systolic function is normal. The right atrium is normal in size The left atrial size is normal. There is a trace amount of mitral regurgitation There is no mitral valve stenosis. There is no aortic valve stenosis No aortic regurgitation is present. There is a trace or physiologic amount of tricuspid regurgitation Tricuspid regurgitation jet envelope not well defined to measure RV systolic pressure accurately. The aortic root is not well visualized but is probably normal size. The inferior vena cava was not well visualized There is no pericardial effusion. MMode/2D Measurements & Calculations RVDd: 3.2 cm LVIDd: 5.1 cm FS: 22.2 % Ao root diam: 3.2 cm IVSd: 0.86 cm LVIDs: 4.0 cm EDV(Teich): 125.6 ml LVPWd: 1.0 cm ESV(Teich): 69.6 ml Ao root area: 8.0 cm2 EF(Teich): 44.6 % LA dimension: 2.9 cm Doppler Measurements & Calculations MV E max braulio: MV P1/2t max braulio: Ao V2 max: LV V1 max P.8 cm/sec 49.5 cm/sec 100.4 cm/sec 3.2 mmHg MV A max braulio: MV P1/2t: 108.2 msec Ao max PG: LV V1 max: 84.4 cm/sec 4.0 mmHg 88.8 cm/sec MV E/A: 0.47 MVA(P1/2t): 2.0 cm2 MV dec slope: 134.0 cm/sec2 MV dec time: 0.23 sec PA V2 max: TR max braulio: 81.9 cm/sec 203.6 cm/sec PA max PG: TR max P.6 mmHg 2.7 mmHg Left Ventricle The left ventricle is grossly normal size. There is mild concentric left ventricular hypertrophy. Left ventricular systolic function is mildly reduced. LV EF is 45%. Doppler measurements suggest pseudonormalized left ventricular relaxation, which is associated with grade II/IV or mild to moderate diastolic dysfunction. There is inferior wall moderate hypokinesis. There is posterior wall dyskinesis. Right Ventricle The right ventricle is grossly normal size. There is normal right ventricular wall thickness. The right ventricular systolic function is normal. Atria The right atrium is normal in size. The left atrial size is normal. Interarterial septum not well visualized and not well dopplered. Cannot comment on ASD/PFO presence. Mitral Valve The mitral valve is grossly normal. There is no mitral valve stenosis. There is a trace amount of mitral regurgitation. Aortic Valve The aortic valve is grossly normal. There is no aortic valve stenosis. No aortic regurgitation is present. Tricuspid Valve The tricuspid valve is not well visualized, but is grossly normal. There is no tricuspid stenosis. There is a trace or physiologic amount of tricuspid regurgitation. Tricuspid regurgitation jet envelope not well defined to measure RV systolic pressure accurately. Pulmonic Valve The pulmonic valve is not well visualized. Great Vessels The aortic root is not well visualized but is probably normal size. The inferior vena cava was not well visualized. Effusions There is no pericardial effusion. : MARIMAR WILKERSON > Balwinder Ferrer
--- NOTE | 2017-12-20 18:31 | PDOC PROGRESS REPORT ---
Subjective Progress Note for:: 12/20/17 Subjective:: Patient seems to be doing better. Patient was seen on morning rounds and also prior to discharge. Pt is denying any chest arm or neck discomfort. Patient denying any PND, orthopnea. Patient denied any sustained palpitations, dizziness, syncope, near syncope. Patient denying any fever chills. Patient denying any other significant discomfort. Patient is maintaining sinus rhythm. No sustained tacky or bradycardia arrhythmias were noted. Review of systems: Rest review of systems negative. Medications: Medications have been reviewed. Reason For Visit: CHEST AND ABD PAIN CAD Physical Exam Vital Signs: Temp Pulse Resp BP Pulse Ox 98.0 F 72 16 114/72 95 12/20/17 15:58 12/20/17 15:58 12/20/17 15:58 12/20/17 15:58 12/20/17 15:58 Intake & Output 12/19/17 12/20/17 12/21/17 06:59 06:59 06:59 Intake Total 442 Balance 442 Weight 92.9 kg 83.6 kg Exam: GENERAL: well-nourished and in no acute distress. Alert and oriented x3 HEAD: Atraumatic, normocephalic. EYES: Pupils equal round and reactive to light, extraocular movements intact, sclera anicteric, conjunctiva are normal. ENT: TMs normal, nares patent, oropharynx clear without exudates. Moist mucous membranes. No oral ulcerations or bleeding gums noted NECK: supple without lymphadenopathy. Trachea is central. No cervical or axillary lymphadenopathy noted. Carotids are 2+, JVD WNL LUNGS: Respiration seems nonlabored, no significant accessory muscle action noted. Breath sounds clear to auscultation bilaterally and equal noted. No wheezes rales or rhonchi noted. No significant dullness noted on percussion. CHEST: Palpation of the chest wall shows no significant chest wall tenderness. HEART: [place] [employer], No PSH, 1/6 NASEEM aortic area, 1/6 banks systolic murmur mitral area, no rubs, no gallops. ABDOMEN: Soft, mild epigastric tenderness appreciated, normoactive bowel sounds. No guarding, no rebound. No rigidity noted . No masses appreciated. EXTREMITIES: Pedal pulses are 1-2+, no calf tenderness noted. No clubbing or cyanosis. negative pedal edema noted NEUROLOGICAL: Focused neurological exam showed no significant neurologic deficit. Normal speech, no focal weakness appreciated. PSYCH: Normal mood, normal affect. Judgment and insight within normal limits. SKIN: No significant ecchymosis, skin is noted to be warm. MUSCULOSKELETAL EXAM: No significant acute joint swelling noted. Results Laboratory Results: 12/20/17 04:10 Triglycerides 103 Cholesterol 235.16 H LDL Cholesterol Direct 182 H VLDL Cholesterol 21.0 HDL Cholesterol 45 12/19/17 12/19/17 12/19/17 06:00 11:30 17:25 CK-MB (CK-2) 0.40 0.36 0.28 Troponin I < 0.012 < 0.012 < 0.012 NT-Pro-B Natriuret Pep 12/19/17 17:25 CK-MB (CK-2) Troponin I NT-Pro-B Natriuret Pep 341 EKG Comments: Telemetry shows sinus rhythm without any sustained tachycardia or bradycardia. Impressions: Acute Abdomen Series 12/18/17 19:44 IMPRESSION: NO RADIOGRAPHIC EVIDENCE FOR ACUTE ABDOMINAL DISEASE. Head CT 12/20/17 00:00 IMPRESSION: Normal CT of the head. Assessment & Plan - Diagnosis (1) Cardiomyopathy Qualifiers: Cardiomyopathy type: ischemic Qualified Code(s): I25.5 - Ischemic cardiomyopathy Is this a current diagnosis for this admission?: Yes (2) CAD (coronary artery disease) Qualifiers: Coronary Disease-Associated Artery/Lesion type: unspecified vessel or lesion type [place] vs. transplanted heart: [place] heart Associated angina: angina presence unspecified Qualified Code(s): I25.10 - Atherosclerotic heart disease of [place] coronary artery without angina pectoris Is this a current diagnosis for this admission?: Yes (3) Abdominal pain Qualifiers: Abdominal location: epigastric Qualified Code(s): R10.13 - Epigastric pain Is this a current diagnosis for this admission?: Yes (4) Tobacco abuse Is this a current diagnosis for this admission?: Yes (5) Hypertension Qualifiers: Hypertension type: essential hypertension Qualified Code(s): I10 - Essential (primary) hypertension Is this a current diagnosis for this admission?: Yes (6) Dyslipidemia Is this a current diagnosis for this admission?: Yes (7) Chest pain Qualifiers: Chest pain type: unspecified Qualified Code(s): R07.9 - Chest pain, unspecified Is this a current diagnosis for this admission?: Yes - Notes Notes: Chest pain: This was evaluated by nuclear stress test and cardiac enzymes. So far cardiac enzymes have been negative. Nuclear stress test was negative for any definitive signs of ischemia. Patient was advised to report any recurrence of chest pain. So far there has been no recurrence since admission. Cardiomyopathy: Patient is noted to have severely depressed LVEF on EKG gated imaging. 2D echo report reviewed. It showed LV EF at approximately 45%. Inferior wall moderate hypokinesia and posterior wall mild dyskinesia was noted. No significant valvular abnormalities were noted. Patient does have the grade 2 diastolic dysfunction. These results were discussed. Coronary artery disease: Patient is denying any chest pain. Nuclear stress test shows predominantly severe fixed defect. If patient has any recurrence of chest pain, may need to consider a heart catheterization. Patient was asked to report such symptoms. He was given follow-up appointment. Epigastric discomfort: Possibly related to acute gastritis, distal esophagitis and other causes. Currently being expertly managed by hospitalist. Tobacco abuse: Patient has been advised to quit smoking. Hypertension: Recommend SALINA inhibitor/ARB. Recommend carvedilol therapy for both hypertension and LV systolic dysfunction. Blood pressure goal should be 135/85 or less. Hyperlipidemia: Patient will benefit from high potency statin therapy such as Lipitor at 80 or 40 mg at bedtime or Crestor at 20 or 40 mg at bedtime. Patient advised regular cardiology follow-up. - Time Time with patient: Greater than 35 minutes - CODE STATUS was discussed, patient remains full code. Surrogate decision-maker unchanged. Multiple medical problems were addressed. More than 50% of the time spent coordinating care, discussing management plans with involved caregivers. Management plans discussed with involved personnels. Medical decision making was of moderate to high complexity, patient's has multiple comorbidities. Medications reviewed and adjusted accordingly: Yes
[2017-12-20] MEDS ORDERED: LISINOPRIL 5 MG TABLET PO SCH (22:00)
== END 2017-12-20 16:29 | disposition home or self-care (01) ==
LOC: ER 19:08 → EH 12-19 00:42 → 5 12-19 03:40
PROVIDERS: ADMIT Internal Medicine; ATTEND Internal Medicine
DX: R10.13 Epigastric pain (principal); R07.9 Chest pain, unspecified; I25.10 Atherosclerotic heart disease of native coronary artery without angina pectoris; F17.200 Nicotine dependence, unspecified, uncomplicated; R14.2 Eructation; R14.3 Flatulence; R06.02 Shortness of breath; I25.2 Old myocardial infarction; R01.1 Cardiac murmur, unspecified; I25.5 Ischemic cardiomyopathy; I10 Essential (primary) hypertension; E78.5 Hyperlipidemia, unspecified; K21.9 Gastro-esophageal reflux disease without esophagitis; R11.2 Nausea with vomiting, unspecified; Z95.1 Presence of aortocoronary bypass graft; Z91.14 Patient's other noncompliance with medication regimen; Z87.19 Personal history of other diseases of the digestive system; Z82.49 Family history of ischemic heart disease and other diseases of the circulatory system; Z87.09 Personal history of other diseases of the respiratory system
CPT/HCPCS: 93005; 99285; 96374; 36415 ×3; 82553; 83690; 85025; 80053; 84484 ×2; 80061; 83880; 93306; 93017; 74022; 78452; 70450; 74150; 93010; A9500; J2785; A9270 ×14; J3490 ×4; J1885; J2270; J2060; J2550 ×2; Q9969; G0378

== ENCOUNTER 2018-03-15 22:26 | Emergency (ER) | payer MEDICARE, MEDICAID ==
[2018-03-15 23:01] LABS: ABSOLUTE EOSINOPHILS # (AUTO) 0.2 10^3/uL (0.0-0.6); ABSOLUTE LYMPHOCYTES (AUTO) 2.1 10^3/uL (0.5-4.7); ABSOLUTE MONOCYTES (AUTO) 0.7 10^3/uL (0.1-1.4); BASOPHILS % (AUTO) 0.3 % (0-2); EOSINOPHILS % (AUTO) 2.5 % (0-6); HEMATOCRIT 47.7 % (37.9-51.0); HEMOGLOBIN 16.1 g/dL (13.5-17.0); LYMPHOCYTES % (AUTO) 26.6 % (13-45); MEAN CORPUSCULAR HEMOGLOBIN 32.2 pg (27.0-33.4); MEAN CORPUSCULAR HGB CONC 33.8 g/dL (32.0-36.0); MEAN CORPUSCULAR VOLUME 96 fl (80-97); MONOCYTES % (AUTO) 8.6 % (3-13); PLATELET COUNT 267 10^3/uL (150-450); RED CELL DISTRIBUTION WIDTH 13.7 % (11.5-14.0); TOTAL CELLS COUNTED % (AUTO) 100 %
[2018-03-15 23:05] LABS: ANION GAP 12 (5-19); BLOOD UREA NITROGEN 16 mg/dL (7-20); CALCIUM 9.7 mg/dL (8.4-10.2); CARBON DIOXIDE 28 mmol/L (22-30); CHLORIDE 102 mmol/L (98-107); GLUCOSE 105 mg/dL (75-110); POTASSIUM 4.1 mmol/L (3.6-5.0); SODIUM 142.4 mmol/L (137-145)
--- NOTE | 2018-03-15 23:37 | RADIOLOGY REPORT (SQ) ---
EXAM DESCRIPTION: XR CHEST 1 VIEW COMPLETED DATE/TME: 03/15/2018 22:34 CLINICAL HISTORY: 57 years, Male, cp COMPARISON: None. EXAM DESCRIPTION: CLINICAL HISTORY: cp COMPARISON: None. FINDINGS: Single view of the chest is submitted. There is atelectasis at the left lung base with a small region of consolidation. There is a small left pleural effusion. Right lung is clear. Cardiac silhouette is mildly enlarged. No other focal parenchymal or pleural disease. IMPRESSION: Left lung base consolidation and atelectasis.
[2018-03-16] MEDS ORDERED: METOCLOPRAMIDE HCL ORAL SOLN 10 MG/10 ML UDCUP PO ONE (00:21)
[2018-03-16] MEDS ORDERED: ONDANSETRON 4 MG TAB.RAPDIS PO ONE (00:21)
[2018-03-16] MEDS ORDERED: MAG HYDROX/AL HYDROX/SIMETH SUSP 30 ML UDCUP PO ONE (00:21)
[2018-03-16] MEDS ORDERED: FAMOTIDINE 20 MG TABLET PO ONE (00:21)
[2018-03-16] MEDS ORDERED: LIDOCAINE 2% VISCOUS SOLN 20 ML UDCUP PO ONE (00:21)
--- NOTE | 2018-03-16 00:27 | ER Document Report ---
ED General - General Chief Complaint: Chest Pain Stated Complaint: CHEST PAIN Time Seen by Provider: 03/15/18 22:34 Notes: Patient is a 57-year-old male with a past medical history of hypertension, hyperlipidemia, gastroesophageal reflux, and arthritis who presents with 3 days of nausea, vomiting, throat burning, chest burning and epigastric abdominal discomfort. The patient reports that the symptoms started gradually and have been progressively worsening since that time. He reports that eating seems to worsen his symptoms. Nothing improves his symptoms. He notes that he has a history of reflux in the past but has never had such severe symptoms. He does have a surgical history of an appendectomy but denies any additional abdominal surgical history. He denies any focal abdominal pain at the time of my assessment. No known history of coronary artery disease. He has not seen his general doctor regarding today's concerns. He denies any fever or constitutional symptoms. TRAVEL OUTSIDE OF THE [place] IN LAST 30 DAYS: No - Related Data Allergies/Adverse Reactions: cephalexin [From Keflex] Allergy (Verified 03/16/18 00:14) tramadol Allergy (Verified 03/16/18 00:14) Past Medical History - General Information source: Patient - Social History Smoking Status: Current Every Day Smoker Frequency of alcohol use: None Drug Abuse: None Lives with: Spouse/Significant other Family History: CAD, COPD Patient has suicidal ideation: No Patient has homicidal ideation: No - Past Medical History Cardiac Medical History: Reports: Hx Coronary Artery Disease, Hx Heart Attack, Hx Hypercholesterolemia, Hx Hypertension Pulmonary Medical History: Reports: Hx COPD Renal/ Medical History: Denies: Hx Peritoneal Dialysis GI Medical History: Reports: Hx Gastroesophageal Reflux Disease Past Surgical History: Reports: Hx Cardiac Surgery - bipass, Hx Coronary Artery Bypass Graft, Hx Orthopedic Surgery - L tib/fib Review of Systems - Review of Systems Notes: Constitutional: Negative for fever. HENT: Negative for sore throat. Eyes: Negative for visual changes. Cardiovascular: Positive for chest burning Respiratory: Negative for shortness of breath. Gastrointestinal: Positive for epigastric abdominal pain and vomiting Genitourinary: Negative for dysuria. Musculoskeletal: Negative for back pain. Skin: Negative for rash. Neurological: Negative for headaches, weakness or numbness. 10 point ROS negative except as marked above and in HPI. Physical Exam - Vital signs Vitals: Temp 98.8 F 03/15/18 22:29 Interpretation: Normal Notes: PHYSICAL EXAMINATION: GENERAL: Well-appearing, well-nourished and in no acute distress. HEAD: Atraumatic, normocephalic. EYES: Pupils equal round and reactive to light, extraocular movements intact, sclera anicteric, conjunctiva are normal. ENT: nares patent, oropharynx clear without exudates. Moderately dry mucous membranes. NECK: Normal range of motion, supple without lymphadenopathy LUNGS: Breath sounds clear to auscultation bilaterally and equal. No wheezes rales or rhonchi. HEART: Regular rate and rhythm without murmurs ABDOMEN: Soft, nontender, normoactive bowel sounds. No guarding, no rebound. No masses appreciated. EXTREMITIES: Normal range of motion, no pitting or edema. No cyanosis. NEUROLOGICAL: No focal neurological deficits. Moves all extremities spontaneously and on command. PSYCH: Normal mood, normal affect. SKIN: Warm, Dry, normal turgor, no rashes or lesions noted. Course - Re-evaluation Re-evalutation: 03/16/18 00:25 Patient presents with epigastric abdominal pain with associated reflux symptoms most consistent with likely gastritis. Patient has no focal abdominal tenderness on examination. Bedside right upper quadrant ultrasound does not demonstrate any evidence of acute cholecystitis or cholelithiasis. Lipase is normal. No LFT changes. Based on history and exam, I do not suspect ACS, pulmonary embolus, SBO, mesenteric ischemia, acute pancreatitis, biliary pathology, or an abdominal aortic dissection. Patient was having reflux symptoms into his chest. Chest x-ray, cardiac markers and EKG likewise unremarkable. Chest x-ray does show atelectatic changes at the left base but his clinical history and exam are not all consistent with an acute pneumonia and I do not believe the noted consolidation in the left base is a pneumonia. Patient has had improvement of symptoms here with a GI cocktail. At this time will discharge with return precautions and follow-up recommendations. Verbal discharge instructions given a the bedside and opportunity for questions given. Medication warnings reviewed. Patient is in agreement with this plan and has verbalized understanding of return precautions and the need for primary care follow-up in the next 24-72 hours. 03/16/18 03:43 - Vital Signs Vital signs: Temp Pulse Resp BP Pulse Ox 98.8 F 9 L 106/80 95 03/15/18 22:29 03/16/18 02:31 03/16/18 02:31 03/16/18 02:31 - Laboratory Result Diagrams: 03/15/18 22:00 03/15/18 22:00 Laboratory results interpreted by me: 03/15/18 22:00 ALT 8 L - Diagnostic Test Radiology reviewed: Image reviewed, Reports reviewed Radiology results interpreted by me: 03/16/18 00:27 CXR: Left base atelectasis. No infiltrates or pneumothorax - EKG Interpretation by Me Additional EKG results interpreted by me: 03/16/18 03:43 Sinus rhythm. Rate 78. No ST elevations or depressions. QTC is 442. Discharge - Discharge Clinical Impression: Chest discomfort Nausea and vomiting Qualifiers: Vomiting type: unspecified Vomiting Intractability: non-intractable Qualified Code(s): R11.2 - Nausea with vomiting, unspecified Gastroesophageal reflux Qualifiers: Esophagitis presence: esophagitis presence not specified Qualified Code(s): K21.9 - Gastro-esophageal reflux disease without esophagitis Condition: Good Disposition: HOME, SELF-CARE Additional Instructions: Your symptoms appear to be most consistent with stomach or upper intestinal irritation. Please begin taking famotidine 40 mg in the morning and 40 mg at night. This medicine can be purchased directly [id number]. You may also take medicine such as Pepto-Bismol or Tums to assist with your pain. Please return to emergency department immediately if you have worsening of your pain, shortness of breath, vomiting, become unable to exert yourself due to pain or difficulty breathing, you pass out, or have any pain that radiates into your arms, jaw, or back. Please also return if you have any additional symptoms that are concerning to you. Discontinue the naproxen that you are currently taking as this is likely contributing to your symptoms. As we have discussed, the most important thing is lifestyle changes. You need to avoid smoking, sodas, tea, coffee, alcohol, spicy foods, and acidic foods such as citrus fruits, tomato based products, berries, and most fruit juices. Prescriptions: Famotidine 40 mg PO BID #60 tablet Sucralfate [Carafate 1 gm Tablet] 1 gm PO ACHS #120 tablet Referrals: TUSHAR RODRIGUES MD [Primary Care Provider] - Follow up as needed
[2018-03-16 01:12] LABS: ALANINE AMINOTRANSFERASE 8 U/L (21-72); ALBUMIN 4.2 g/dL (3.5-5.0); ALKALINE PHOSPHATASE 83 U/L (38-126); ASPARTATE AMINO TRANSFERASE 52 U/L (17-59); BILIRUBIN,DIRECT 0.4 mg/dL (0.0-0.4); BILIRUBIN,TOTAL 0.5 mg/dL (0.2-1.3); LIPASE 175.7 U/L (23-300); TOTAL PROTEIN 7.6 g/dL (6.3-8.2)
[2018-03-16] MEDS ORDERED: ONDANSETRON ODT 4 MG TAB (6 TAB/ER DISP) PO PRN (01:17)
[2018-03-16 02:47] VITALS: BP 106/80
--- NOTE | 2018-03-16 07:58 | EKG REPORT ---
SEVERITY:- ABNORMAL ECG - SINUS RHYTHM PROBABLE LEFT ATRIAL ABNORMALITY BORDERLINE LEFT AXIS DEVIATION REPOL ABNRM SUGGESTS ISCHEMIA, LATERAL LEADS : Confirmed by: Edmund Cruz MD 16-Mar-2018 07:58:01
--- NOTE | 2018-03-16 07:59 | EKG REPORT ---
SEVERITY:- ABNORMAL ECG - SINUS RHYTHM PROBABLE LEFT ATRIAL ABNORMALITY PROBABLE INFERIOR INFARCT, AGE INDETERMINATE LATERAL LEADS ARE ALSO INVOLVED : Confirmed by: Edmund Cruz MD 16-Mar-2018 07:58:24
== END 2018-03-16 02:48 | disposition home or self-care (01) ==
LOC: ER 22:26
DX: K21.9 Gastro-esophageal reflux disease without esophagitis (principal); R11.2 Nausea with vomiting, unspecified; J98.11 Atelectasis; R07.9 Chest pain, unspecified; R10.13 Epigastric pain; I10 Essential (primary) hypertension; I25.10 Atherosclerotic heart disease of native coronary artery without angina pectoris; I25.2 Old myocardial infarction; J44.9 Chronic obstructive pulmonary disease, unspecified; F17.200 Nicotine dependence, unspecified, uncomplicated; Z90.49 Acquired absence of other specified parts of digestive tract; Z88.1 Allergy status to other antibiotic agents; Z88.5 Allergy status to narcotic agent; Z82.49 Family history of ischemic heart disease and other diseases of the circulatory system; Z95.1 Presence of aortocoronary bypass graft
CPT/HCPCS: 93005 ×2; 99285; 36415; 83690; 85025; 80076; 80048; 84484; 71045; 93010 ×2; A9270 ×3; J3490; S0119

== ENCOUNTER 2018-08-10 20:35 | Emergency (ER) | payer MEDICARE, MEDICAID ==
[2018-08-10 20:44] VITALS: BP 137/89
[2018-08-10] MEDS ORDERED: IBUPROFEN 600 MG TABLET PO ONE (22:10)
[2018-08-10] MEDS ORDERED: ACETAMINOPHEN 325 MG TABLET PO ONE (22:10)
--- NOTE | 2018-08-10 22:10 | ER Document Report ---
HPI - HPI Time Seen by Provider: 08/10/18 21:45 Onset: Other - 3 weeks Onset/Duration: Waxing and waning Quality of pain: Achy Severity: Moderate Pain Level: 4 Context: Patient is a 58-year-old male who presents to the emergency department with a chief complaint of right arm pain. His pain started 3 weeks ago. He was using a chainsaw when he first felt his pain, but denies any injury or trauma. The pain is primarily at his elbow and radiates up his arm to his shoulder. He states the pain is an aching pain. He has not taken any medication to help with his symptoms. He has a history of arthritis. Associated Symptoms: None Exacerbated by: Movement Relieved by: Remaining still - CONSTITUTIONAL Constitutional: DENIES: Fever, Chills - RESPIRATORY Respiratory: DENIES: Trouble Breathing - REPRODUCTIVE Reproductive: DENIES: : - MUSCULOSKELETAL Musculoskeletal: REPORTS: Extremity pain - DERM Skin Color: Normal Skin Problems: None Past Medical History - General Information source: Patient - Social History Smoking Status: Current Every Day Smoker Family History: CAD, COPD - Past Medical History Cardiac Medical History: Reports: Hx Coronary Artery Disease, Hx Heart Attack, Hx Hypercholesterolemia, Hx Hypertension Pulmonary Medical History: Reports: Hx COPD Renal/ Medical History: Denies: Hx Peritoneal Dialysis GI Medical History: Reports: Hx Gastroesophageal Reflux Disease Past Surgical History: Reports: Hx Cardiac Surgery - bipass, Hx Coronary Artery Bypass Graft, Hx Orthopedic Surgery - L tib/fib Vertical Provider Document - CONSTITUTIONAL Notes: PHYSICAL EXAMINATION: GENERAL: Appears well, healthy, well-nourished, no acute distress. HEAD: Normocephalic, atraumatic. EYES: PERRL, conjunctiva normal, all extraocular movements intact, sclera nonicteric ENT: Moist mucous membranes. NECK: Supple, no noticeable swelling, redness, rash. Normal range of motion. LUNGS: Equal breath sounds bilaterally and clear to auscultation. No wheezes rales or rhonchi. CARDIOVASCULAR: S1-S2, regular rate, regular rhythm. Radial pulses 2+, normal. ABDOMEN: Normoactive bowel sounds. Soft, nontender, no guarding, no rebound tenderness, and no masses palpated. EXTREMITIES: no pitting or edema. No cyanosis. Patient not able to fully extend right arm. NEUROLOGICAL: Moves all extremities upon command. Strength 5/5 in all extremities. PSYCH: Normal mood, normal affect. SKIN: Warm, dry. No rash, lesions, ulcerations noted. Normal skin turgor. - INFECTION CONTROL TRAVEL OUTSIDE OF THE [place] IN LAST 30 DAYS: No Course - Re-evaluation Re-evalutation: 08/11/18 0000 The patient's x-ray shows degenerative changes, consistent with arthritis. He also does have a spur noted on his olecranon process. I do not suspect he has any life-threatening etiology at this time. I do not suspect he has an acute fracture or compartment syndrome. suspect that his pain is chronic in nature. He will follow-up with orthopedics outpatient. Verbal discharge instructions were given to the patient. They verbalized understanding. They are stable for discharge. Documentation was completed using voice recognition software, therefore there may be some unintended grammatical or punctual errors. - Vital Signs Vital signs: Temp Pulse Resp BP Pulse Ox 98.2 F 89 16 137/89 H 97 08/10/18 20:43 08/10/18 20:43 08/10/18 20:43 08/10/18 20:43 08/10/18 20:43 Discharge - Discharge Clinical Impression: Right arm pain Condition: Stable Disposition: HOME, SELF-CARE Additional Instructions: You were seen today in the emergency department for right arm pain. Your x-ray shows that you have degenerative changes in your elbow, consistent with arthritis. Please see an orthopedic surgeon tomorrow in regards to your emergency department visit. You may take naproxen (Aleve) 500 mg twice a day as needed for your pain. You may also take Tylenol 1000 mg every 6 hours as needed for your pain. If you are unable to move your arm, the joint becomes hot and swollen, have worsening symptoms, or have any symptoms that are worrisome to you, please return to the emergency department. Referrals: TUSHAR RODRIGUES MD [Primary Care Provider] - Follow up as needed EMMANUEL BORREGO DO [ACTIVE STAFF] - 08/11/18
--- NOTE | 2018-08-10 23:44 | RADIOLOGY REPORT (SQ) ---
EXAM DESCRIPTION: XR ELBOW 1-2 VIEWS COMPLETED DATE/TME: 08/10/2018 22:08 CLINICAL HISTORY: 58 years, Male, Elbow pain COMPARISON: None. NUMBER OF VIEWS: 2 TECHNIQUE: 2 view right elbow LIMITATIONS: None. FINDINGS: Negative for acute fracture or dislocation. No joint effusion. Mild degenerative changes of the elbow. Olecranon spur present. IMPRESSION: Degenerative changes with olecranon spur copyright 2010 [employer]- All Rights Reserved
== END 2018-08-11 00:04 | disposition home or self-care (01) ==
LOC: ER 20:35
DX: M79.601 Pain in right arm (principal); M77.8 Other enthesopathies, not elsewhere classified; I10 Essential (primary) hypertension; I25.10 Atherosclerotic heart disease of native coronary artery without angina pectoris; F17.200 Nicotine dependence, unspecified, uncomplicated; J44.9 Chronic obstructive pulmonary disease, unspecified
CPT/HCPCS: 99283; 73070; A9270 ×2

== ENCOUNTER 2018-10-17 05:15 | Day surgery (SDC) | payer MEDICARE, MEDICAID ==
[2018-10-10 10:58] LABS: HEMATOCRIT 45.1 % (37.9-51.0); HEMOGLOBIN 15.4 g/dL (13.5-17.0); MEAN CORPUSCULAR HEMOGLOBIN 32.3 pg (27.0-33.4); MEAN CORPUSCULAR HGB CONC 34.2 g/dL (32.0-36.0); MEAN CORPUSCULAR VOLUME 95 fl (80-97); PLATELET COUNT 232 10^3/uL (150-450); RED BLOOD COUNT 4.77 10^6/uL (4.35-5.55); RED CELL DISTRIBUTION WIDTH 14.2 % (11.5-14.0); WHITE BLOOD COUNT 7.6 10^3/uL (4.0-10.5)
[2018-10-10 11:22] LABS: ANION GAP 11 (5-19); BLOOD UREA NITROGEN 18 mg/dL (7-20); CALCIUM 8.9 mg/dL (8.4-10.2); CARBON DIOXIDE 29 mmol/L (22-30); CHLORIDE 103 mmol/L (98-107); GLUCOSE 98 mg/dL (75-110); POTASSIUM 4.2 mmol/L (3.6-5.0); SODIUM 142.9 mmol/L (137-145)
--- NOTE | 2018-10-10 11:44 | RADIOLOGY REPORT (SQ) ---
EXAM DESCRIPTION: CHEST PA/LATERAL COMPLETED DATE/TIME: 10/10/2018 10:14 am REASON FOR STUDY: PRE-OP COMPARISON: 12/18/2017 EXAM PARAMETERS: NUMBER OF VIEWS: two views TECHNIQUE: Digital Frontal and Lateral radiographic views of the chest acquired. RADIATION DOSE: NA LIMITATIONS: none FINDINGS: LUNGS AND PLEURA: Chronic elevation left diaphragm. Chronic blunting of left costophreni c angle. MEDIASTINUM AND HILAR STRUCTURES: No masses or contour abnormalities. HEART AND VASCULAR STRUCTURES: Heart normal size. No evidence for failure. BONES: No acute findings. HARDWARE: None in the chest. OTHER: No other significant finding. IMPRESSION: No acute findings in the chest. TECHNICAL DOCUMENTATION: JOB ID: [id number] [employer]- All Rights Reserved Reading location - IP/workstation name: [email or web address] [email or web address]
--- NOTE | 2018-10-10 13:18 | EKG REPORT ---
SEVERITY:- ABNORMAL ECG - SINUS RHYTHM MULTIPLE VENTRICULAR PREMATURE COMPLEXES PROBABLE LEFT ATRIAL ABNORMALITY PROBABLE INFERIOR INFARCT, AGE INDETERMINATE NONSPECIFIC T ABNORMALITIES, ANT-LAT LEADS : Confirmed by: Edmund Cruz MD 10-Oct-2018 13:18:00
[~2018-10-17 05:15] MED LIST: CEFAZOLIN 2 GM/D5W RTU 2 GM/50 ML RTUPB IV PRN; CLINDAMYCIN 600 MG/D5W RTU 600 MG/50 ML RTUPB IV ONE; CLINDAMYCIN 600 MG/D5W RTU 600 MG/50 ML RTUPB IV PRN; LACTATED RINGERS 1000 ML IV PRN; LIDOCAINE 0.5% INJ-PF (5 MG/ML) 50 ML SDV SUBCUT PRN
[2018-10-17] MEDS ORDERED: ALBUTEROL SULFATE 0.083% NEB 2.5 MG/3 ML AMPUL NEB ONE (05:32)
[2018-10-17] MEDS ORDERED: CARVEDILOL 6.25 MG TABLET ONE (05:53)
[2018-10-17] MEDS ORDERED: HYDROMORPHONE HCL INJ/PF 2 MG/ML AMPULE ONE (06:51)
[2018-10-17] MEDS ORDERED: ONDANSETRON HCL INJ/PF 4 MG/2 ML SDV ONE (06:52)
[2018-10-17] MEDS ORDERED: FENTANYL CITRATE INJ/PF 100 MCG/2 ML AMPUL ONE (06:52)
[2018-10-17] MEDS ORDERED: PROPOFOL INJ 200 MG/20 ML VIAL IV ONE (06:52)
[2018-10-17] MEDS ORDERED: MIDAZOLAM 2 MG/2 ML INJ ONE (06:52)
[2018-10-17] MEDS ORDERED: EPHEDRINE SULFATE INJ 50 MG/1 ML AMPULE ONE (06:52)
[2018-10-17] MEDS ORDERED: DEXAMETHASONE SOD PHOSPHATE INJ 4 MG/1 ML VIAL ONE (06:52)
[2018-10-17] MEDS ORDERED: PROMETHAZINE HCL INJ 25 MG/1 ML VIAL ONE (06:52)
[2018-10-17] MEDS ORDERED: BUPIVACAINE HCL 0.25 % INJ/PF (2.5 MG/1 ML) 30 ML VIAL ONE (07:05)
[2018-10-17] MEDS ORDERED: FENTANYL CITRATE INJ/PF 100 MCG/2 ML AMPUL IV PRN ×3 (07:46)
[2018-10-17] MEDS ORDERED: DIPHENHYDRAMINE HCL 50 MG/ML VIAL IV PRN (07:46)
[2018-10-17] MEDS ORDERED: MORPHINE SULFATE 10 MG/ML INJ IV PRN (07:46)
[2018-10-17] MEDS ORDERED: MEPERIDINE HCL/PF INJ 25 MG/1 ML DISP.SYRIN IV PRN (07:46)
[2018-10-17] MEDS ORDERED: PROMETHAZINE HCL INJ 25 MG/1 ML VIAL IV PRN ×2 (07:46)
[2018-10-17] MEDS ORDERED: NEOSTIGMINE METHYLSULFATE 10 MG/10 ML VIAL ONE ×2 (10:16)
[2018-10-17] MEDS ORDERED: PHENYLEPHRINE HCL INJ/PF 10 MG/1 ML SDV ONE (10:16)
[2018-10-17] MEDS ORDERED: GLYCOPYRROLATE 1 MG/5 ML SYRINGE ONE (10:16)
[2018-10-17] MEDS ORDERED: ROCURONIUM BROMIDE INJ 50 MG/5 ML VIAL IV ONE (10:16)
[2018-10-17] MEDS ORDERED: SUCCINYLCHOLINE CHLORIDE INJ 200 MG/10 ML VIAL ONE (10:16)
[2018-10-17] MEDS: FENTANYL CITRATE INJ/PF 100 MCG/2 ML AMPUL ONE ×2 (10:40→10:45)
--- NOTE | 2018-10-17 10:51 | Discharge Summary ---
Discharge Summary (SDC) - Discharge Final Diagnosis: Bilateral direct, indirect inguinal hernias as well as femoral hernias. Date of Surgery: 10/17/18 Discharge Date: 10/17/18 Condition: Stable Treatment or Instructions: Discharge home. Diet as tolerated. Activity: No lifting greater than 10 pounds x 6 weeks. Follow-up with me in 7-10 days. [place] 10/325 mg p.o. every 6 hours as needed for pain. Okay to shower in 48 hours. No tub baths or swimming pools times 2 weeks. Referrals: TUSHAR RODRIGUES MD [Primary Care Provider] - Discharge Diet: As Tolerated Respiratory Treatments at Home: Deep Breathing/Coughing, Incentive Spirometer Discharge Activity: No Lifting Over 10 Pounds Home Care Assistance: None Needed Report the Following to Your Physician Immediately: Shortness of Breath, Nausea, Vomiting, Increase in Pain, Fever over 101 Degrees, Unusual Bleeding, Redness
[2018-10-17] MEDS ORDERED: HYDROCODONE/ACETAMINOPHEN 10-325 MG TABLET PO PRN (10:55)
--- NOTE | 2018-10-17 11:02 | Operative Report ---
Nonrecallable Operative Report DATE OF SURGERY: 10/17/18 PREOPERATIVE DIAGNOSIS: Bilateral inguinal hernias. POSTOPERATIVE DIAGNOSIS: Bilateral indirect inguinal, direct inguinal, and femoral hernias. OPERATION: Robot-assisted laparoscopic bilateral inguinal hernia repair with mesh. SURGEON: AMMON BRADLEY LAMINATION BUILDER: LESLIE DICK ANESTHESIA: GA TISSUE REMOVED OR ALTERED: None COMPLICATIONS: None apparent ESTIMATED BLOOD LOSS: Minimal PROCEDURE: Drains/implants: Right and left large 3 DMax inguinal hernia mesh. Procedure in detail: After informed consent was obtained, the patient was brought to the operating room and laid in the supine position. The area of the abdomen was prepped and draped in a normal sterile fashion. A curvilinear supraumbilical incision was created. Dissection was carried through the subcutaneous tissue using sharp and blunt dissection. The linea alba fascia was incised sharply, the abdomen was entered sharply. The balloon trocar was inserted, and pneumoperitoneum was achieved. Right and left lateral 8 mm robotic trochars were placed under direct laparoscopic visualization. The robot was then brought over the patient and docked appropriately. I then assumed my position at the surgeon's console. Attention was turned to the right groin. There was a large direct hernia defect obvious. An incision was created in the peritoneum 2-3 cm superior to the obvious hernia defect. Dissection was carried out in a preperitoneal plane. This was done using sharp dissection, blunt dissection, and electrocautery. Upon dissection, there is noted to be an indirect hernia defect, a direct hernia defect, and a femoral defect. The hernia sacs were freed from the defects. This was done with great care so as not to injure the iliac vessels or the spermatic vessels. Once all 3 defects were adequately reduced, the femoral and direct defects were closed using 2-0 nonabsorbable V lock suture in simple running fashion. Next, a large right-sided 3 DMax inguinal hernia mesh was placed into the preperitoneal space and situated over the defects. The mesh was sutured to the anterior abdominal wall medially and superiorly. This was done with 2-0 Vicryl suture. Once this was completed, the peritoneum was closed using 2-0 V lock suture in simple running fashion. Attention was then turned to the left groin. Another direct inguinal hernia defect was easily identified. An incision was created in the peritoneum approximately 2-3 cm superior to the direct inguinal hernia defect. A preperitoneal dissection was then undertaken. Upon dissection, a direct defect, indirect defect, and femoral hernia defect were identified. Again, the femoral and direct defects were closed using 2-0 nonabsorbable V lock suture in simple running fashion. This was done very carefully so as not to injure the iliac vessels. Next, a large left-sided 3 DMax inguinal hernia mesh was placed into the preperitoneal space. It was sutured medially and superiorly using 2-0 Vicryl suture. Once this was completed, the peritoneum was closed using 2-0 V lock suture in simple running fashion. Afterwards, the repairs were inspected and found to be in good order. The robot was then undocked, and I scrubbed back into the case. The 8 mm trocar sites were closed using 0 Vicryl suture in eqssru-ko-hyysh fashion with the assistance of the Endo Close device, under direct laparoscopic visualization. The 12 mm balloon trocar was removed, and pneumoperitoneum was relieved. The periumbilical fascia was closed using 0 Ethibond suture in zqrjqq-rb-bzdek fashion. The overlying skin was closed using 4-0 Vicryl Rapide suture in subcuticular fashion. Dressings were placed, and the procedure was concluded. All sponge, instrument, and needle counts were correct x2. Condition: Stable. Leslie Dick PA-C was scrubbed and present the entirety of the procedure. She assisted with all portions the procedure including placement of the trochars, docking of the robot, exchanging of the robotic instruments, manipulation of the camera, closure of the fascia, and closure of the skin.
[2018-10-17] MEDS ORDERED: HYDROCODONE/ACETAMINOPHEN 10-325 MG TABLET ONE (11:31)
[2018-10-17 13:13] VITALS: BP 112/74
== END 2018-10-17 13:10 | disposition home or self-care (01) ==
LOC: OROUT 05:15
PROVIDERS: ATTEND Surgery
DX: K40.20 Bilateral inguinal hernia, without obstruction or gangrene, not specified as recurrent (principal); K41.20 Bilateral femoral hernia, without obstruction or gangrene, not specified as recurrent; I25.10 Atherosclerotic heart disease of native coronary artery without angina pectoris; I10 Essential (primary) hypertension; I25.2 Old myocardial infarction; J43.9 Emphysema, unspecified; E78.00 Pure hypercholesterolemia, unspecified; F17.210 Nicotine dependence, cigarettes, uncomplicated; Z95.1 Presence of aortocoronary bypass graft; Z88.5 Allergy status to narcotic agent; Z79.899 Other long term (current) drug therapy
CPT/HCPCS: 49650; S2900; 36415; 71046; 80048; 840; 85027; 93005; 93010; C1781; J0330; J1100; J1170; J2250; J2370; J2405; J2550; J2704; J3010; J3490

== ENCOUNTER → 2018-12-25 | Outpatient (CLI) | payer MEDICARE, MEDICAID ==
--- NOTE | 2018-12-25 14:35 | RADIOLOGY REPORT (SQ) ---
EXAM DESCRIPTION: CT LUNG CANCER SCREENING COMPLETED DATE/TIME: 12/25/2018 1:50 pm REASON FOR STUDY: PERSONAL HISTORY OF NICOTINE DEPENDENCE Z87.891 PERSONAL HISTORY OF NICOTINE DEPE NDENCE Has the patient had a Chest CT scan within the past year? No Was the patient offered tobacco cessation counseling? Yes Was the patient engaged in shared decision making for this test? Yes Does the patient have signs or symptoms of Lung Cancer? No Is the patient a smoker? Yes How many pack years? 45 How many years since quitting smoking? Not applicable Patients age: 58 COMPARISON: None. TECHNIQUE: Low Dose CT scan performed of the chest without intravenous contrast for purposes of scre ening for lung cancer. Images reviewed with lung, soft tissue and bone windows. Reconstructed coron al and sagittal MPR images reviewed. All images stored on PACS. All CT scanners at this facility use dose modulation, iterative reconstruction, and/or weight based d osing when appropriate to reduce radiation dose to as low as reasonably achievable (ALARA). [facility]: Dose Right [facility]: CareDose [facility]: Dose Right [facility]: Teradose 4D [facility]: Smart [employer] RADIATION DOSE: CT Rad equipment meets quality standard of care and radiation dose reduction techniq ues were employed. CTDIvol: NaN mGy. DLP: 0 mGy-cm. mGy. . LIMITATIONS: No technical limitations. FINDINGS: LUNG NODULES: Multiple smooth noncalcified subpleural granulomas are present in the right upper lobe less than 3 to 4 mm in size. Nodules less than 4 mm in size are present along the pleura along the right minor and lower major fissure. These are benign in appearance. REMAINING LUNGS AND PLEURA: No pleural effusions or calcifications. No pneumothorax. No scarrin g or interstitial changes. 2 cm bulla or bleb in the posterior right lung base axial image 328/471 HILAR AND MEDIASTINAL STRUCTURES: No identified masses. No abnormal nodes. HEART AND VASCULAR STRUCTURES: No aortic aneurysm. No pericardial effusion. No cardiac devices. CORONARY ARTERY CALCIFICATIONS: Post CABG UPPER ABDOMEN, THYROID, BONES, OTHER SOFT TISSUES: No significant findings. IMPRESSION: BENIGN FINDINGS IN THE LUNGS. NO OTHER CLINICALLY SIGNIFICANT/POTENTIALLY CLINICALLY SIGNIFICANT FINDINGS LUNGRADS: LUNGRADS: 2 BENIGN APPEARANCE OR BEHAVIOR. NODULES WITH A VERY LOW LIKELIHOOD OF BECOMING A CLINICALLY ACTIVE CANCER DUE TO SIZE OR LACK OF GROWTH. MODIFIER: NONE. RECOMMENDATION: Continue annual screening with LDCT in 12 months. COMMENT: CRITERIA: Solid nodule(s): < 6 mm; new < 4 mm. Part solid nodule(s): < 6 mm total diameter on baseline screening. Non solid nodule(s) (GGN): < 20 mm OR ? 20 and unchanged or slowly growing. Category 3 or 4 modules unchanged for ? 3 months. TECHNICAL DOCUMENTATION: JOB ID: [id number] Quality ID # [id number]: Final reports with documentation of one or more dose reduction techniques (e.g., Au tomated exposure control, adjustment of the mA and/or kV according to patient size, use of iterative reconstruction technique) 2010 [facility] Reading location - IP/workstation name: [email or web address]
== END ==
LOC: RAD 13:27
PROVIDERS: ATTEND Internal Medicine
DX: Z12.2 Encounter for screening for malignant neoplasm of respiratory organs (principal); Z87.891 Personal history of nicotine dependence
CPT/HCPCS: G0297

== ENCOUNTER 2018-12-31 20:05 | Emergency (ER) | payer OTHER, MEDICARE, MEDICAID ==
[2018-12-31] MEDS ORDERED: FENTANYL CITRATE INJ/PF 100 MCG/2 ML AMPUL IV ONE (21:34)
[2018-12-31] MEDS ORDERED: ONDANSETRON HCL INJ/PF 4 MG/2 ML SDV IV ONE (21:34)
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
[2018-12-31 22:09] LABS: ABSOLUTE EOSINOPHILS # (AUTO) 0.1 10^3/uL (0.0-0.6); ABSOLUTE LYMPHOCYTES (AUTO) 1.9 10^3/uL (0.5-4.7); BASOPHILS % (AUTO) 0.4 % (0-2); EOSINOPHILS % (AUTO) 1.6 % (0-6); HEMATOCRIT 45.2 % (37.9-51.0); HEMOGLOBIN 15.3 g/dL (13.5-17.0); LYMPHOCYTES % (AUTO) 20.9 % (13-45); MEAN CORPUSCULAR HEMOGLOBIN 31.7 pg (27.0-33.4); MEAN CORPUSCULAR HGB CONC 33.8 g/dL (32.0-36.0); MEAN CORPUSCULAR VOLUME 94 fl (80-97); MONOCYTES % (AUTO) 10.6 % (3-13); PLATELET COUNT 220 10^3/uL (150-450); RED BLOOD COUNT 4.83 10^6/uL (4.35-5.55); SEGMENTED NEUTROPHILS % (AUTO) 66.5 % (42-78); TOTAL CELLS COUNTED % (AUTO) 100 %
[2018-12-31 22:25] LABS: ALANINE AMINOTRANSFERASE 22 U/L (21-72); ALBUMIN 3.9 g/dL (3.5-5.0); ALKALINE PHOSPHATASE 112 U/L (38-126); ANION GAP 8 (5-19); ASPARTATE AMINO TRANSFERASE 17 U/L (17-59); BILIRUBIN,DIRECT 0.2 mg/dL (0.0-0.4); BILIRUBIN,TOTAL 0.6 mg/dL (0.2-1.3); BLOOD UREA NITROGEN 24 mg/dL (7-20); CALCIUM 9.4 mg/dL (8.4-10.2); CARBON DIOXIDE 30 mmol/L (22-30); CHLORIDE 103 mmol/L (98-107); GLUCOSE 96 mg/dL (75-110); POTASSIUM 3.8 mmol/L (3.6-5.0); SODIUM 140.9 mmol/L (137-145); TOTAL PROTEIN 6.4 g/dL (6.3-8.2)
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
--- NOTE | 2018-12-31 23:31 | RADIOLOGY REPORT (SQ) ---
CT CERVICAL SPINE WITHOUT IV CONTRAST HISTORY: Neck pain. COMPARISON: None. TECHNIQUE: CT scan of the cervical spine without IV contrast. This exam was performed according to our departmental dose-optimization program, which includes automated exposure control, adjustment of the mA and/or kV according to patient size and/or use of iterative reconstruction technique. FINDINGS: No acute cervical fracture or prevertebral soft tissue swelling is seen. The cervical alignment is preserved. The facet joints and disc spaces are preserved. No advanced canal stenosis is identified. IMPRESSION: No acute fracture or subluxation of the cervical spine.
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
[2018-12-31] MEDS ORDERED: HYDROCODONE/ACETAMINOPHEN 5-325 MG (6 TAB/ER DISP) PO PRN (23:44)
[2019-01-01 00:24] VITALS: BP 116/74
--- NOTE | 2019-01-01 07:45 | EKG REPORT ---
SEVERITY:- ABNORMAL ECG - SINUS RHYTHM PROBABLE LEFT ATRIAL ABNORMALITY INFERIOR INFARCT, AGE INDETERMINATE LATERAL LEADS ARE ALSO INVOLVED CONSIDER OLD TRUE POST ID : Confirmed by: Edmund Cruz MD 01-Jan-2019 07:45:15
== END 2019-01-01 00:22 | disposition home or self-care (01) ==
LOC: ER 20:05
DX: S09.90XA Unspecified injury of head, initial encounter (principal); S30.1XXA Contusion of abdominal wall, initial encounter; S80.211A Abrasion, right knee, initial encounter; R07.81 Pleurodynia; M25.551 Pain in right hip; M79.605 Pain in left leg; V47.5XXA Car driver injured in collision with fixed or stationary object in traffic accident, initial encounter; Y92.488 Other paved roadways as the place of occurrence of the external cause; Z88.6 Allergy status to analgesic agent
CPT/HCPCS: 93005; 99284; 96374; 96375; 86900; 86901; 36415; 86850; 85025; 80053; 73564; 73590; 70450; 71260; 72125; 74177; 93010; J3010; J2405

== ENCOUNTER → 2019-02-02 | Outpatient (CLI) | payer MEDICARE, MEDICAID ==
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
== END ==
LOC: SP 14:02
PROVIDERS: ATTEND Internal Medicine
DX: R22.42 Localized swelling, mass and lump, left lower limb (principal)
CPT/HCPCS: 93971

== ENCOUNTER 2019-03-31 19:31 | Observation (INO) | payer MEDICARE, MEDICAID ==
[2019-03-31 21:09] LABS: HEMATOCRIT 44.3 % (37.9-51.0); HEMOGLOBIN 14.9 g/dL (13.5-17.0); MEAN CORPUSCULAR HEMOGLOBIN 31.6 pg (27.0-33.4); MEAN CORPUSCULAR HGB CONC 33.5 g/dL (32.0-36.0); MEAN CORPUSCULAR VOLUME 94 fl (80-97); PLATELET COUNT 221 10^3/uL (150-450); RED BLOOD COUNT 4.71 10^6/uL (4.35-5.55); RED CELL DISTRIBUTION WIDTH 14.6 % (11.5-14.0); WHITE BLOOD COUNT 5.4 10^3/uL (4.0-10.5)
[2019-03-31 21:31] LABS: ALBUMIN 3.6 g/dL (3.5-5.0); ALKALINE PHOSPHATASE 83 U/L (38-126); ANION GAP 5 (5-19); ASPARTATE AMINO TRANSFERASE 32 U/L (17-59); BILIRUBIN,DIRECT 0.4 mg/dL (0.0-0.4); BILIRUBIN,TOTAL 0.7 mg/dL (0.2-1.3); BLOOD UREA NITROGEN 17 mg/dL (7-20); CALCIUM 9.2 mg/dL (8.4-10.2); CARBON DIOXIDE 34 mmol/L (22-30); CHLORIDE 100 mmol/L (98-107); GLUCOSE 104 mg/dL (75-110); POTASSIUM 3.9 mmol/L (3.6-5.0); TOTAL PROTEIN 6.4 g/dL (6.3-8.2)
[2019-03-31] MEDS ORDERED: NITROGLYCERIN 0.4 MG/TAB 25 TAB/BOTTLE SL PRN (21:51)
[2019-03-31] MEDS ORDERED: ONDANSETRON HCL 8 MG TABLET PO PRN (21:51)
[2019-03-31] MEDS: HYDROMORPHONE HCL INJ/PF 2 MG/ML AMPULE IV PRN (21:54)
[2019-03-31] MEDS: ONDANSETRON HCL INJ/PF 4 MG/2 ML SDV IV PRN (21:54)
[2019-03-31] MEDS: NORMAL SALINE 1000 ML 1,000 ML IV PRN (21:55)
[2019-03-31] MEDS ORDERED: (PENDING PHARMACY ID) (Tiotropium Br/Olodaterol Hcl [Stiolto Respimat Inhal Spray] 2 PUFF) IH SCH (22:00)
[2019-03-31] MEDS ORDERED: ATORVASTATIN CALCIUM 80 MG TABLET PO SCH (22:00)
[2019-03-31] MEDS ORDERED: CARVEDILOL 6.25 MG TABLET PO SCH (22:00)
[2019-03-31] MEDS ORDERED: (PENDING PHARMACY ID) (Lisinopril/Hydrochlorothiazide [Zestoretic 20-12.5 Mg Tablet] 1 TAB PO SCH (22:00)
[2019-03-31] MEDS ORDERED: (PENDING PHARMACY ID) (Ranitidine Hcl [Zantac] 150 MG) PO SCH (22:00)
[2019-03-31 22:16] LABS: APPEARANCE,URINE CLEAR; BILIRUBIN,URINE NEGATIVE (NEGATIVE); COLOR,URINE YELLOW; GLUCOSE, URINE NEGATIVE (NEGATIVE); KETONES,URINE TRACE mg/dL (NEGATIVE); LEUKOCYTE ESTERASE,URINE NEGATIVE (NEGATIVE); NITRITE,URINE NEGATIVE (NEGATIVE); PROTEIN,URINE 30 mg/dL (NEGATIVE); URINE SPECIFIC GRAVITY 1.029
--- NOTE | 2019-03-31 22:30 | PDOC H&P ---
History of Present Illness Admission Date/PCP: 03/31/19 19:31 TUSHAR RODRIGUES MD History of Present Illness: JAMEEL HORN III is a 58 year old male, He came to the office today for ev aluation of a 2-day history of vomiting, it was persistent, there was no diarrhea he also complained of dysuria. The apparent cause of the vomiting is not clear in this patient he has on examination in the office abdominal hernia, because the etiology of the vomiting is not apparent in the office he was admitted directly from outpatient into the hospital for evaluation. A CT scan of the abdomen and pelvis with IV contrast was obtained, it demonstrated a right basilar atelectasis also found was bilateral pleural thickening with minimal atelectasis in the left base there was no mass identified there was no stone. There was no diverticulitis there was diverticulosis, the urine dipstick was g rossly abnormal suggesting Urinary tract infection Past Medical History Cardiac Medical History: Reports: Coronary Artery Disease, Myocardial Infarction, Hyperlipidema, Hypertension, Other - 3 x 3.7 cm infrarenal abdominal aortic aneurysm Pulmonary Medical History: Reports: Asthma, Chronic Obstructive Pulmonary Disease (COPD) GI Medical History: Reports: Gastroesophageal Reflux Disease, Other - Fatty liver Musculoskeltal Medical History: Reports: Arthritis Hematology: Denies: Anemia Past Surgical History Past Surgical History: Reports: Coronary Artery Bypass Graft, Orthopedic Surgery - L tib/fib Social History Smoking Status: Current Every Day Smoker Frequency of Alcohol Use: None Drugs: None Family History Family History: CAD, COPD Parental Family History Reviewed: Yes Children Family History Reviewed: Yes Sibling(s) Family History Reviewed.: Yes Medication/Allergy Home Medications: Aspirin [Aspirin 81 mg Chewable Tablet] 81 mg PO DAILY 03/31/19 Atorvastatin Calcium [Lipitor 80 mg Tablet] 80 mg PO QHS 03/31/19 Carvedilol [Coreg 6.25 mg Tablet] 6.25 mg PO Q12 03/31/19 Fluticasone/Umeclidin/Vilanter [Trelegy 100-62.5-25 Mcg Ellipta 14 Dose/Dpi] 1 puff IH DAILY 03/31/19 Lisinopril/Hydrochlorothiazide [Zestoretic 20-12.5 mg Tablet] 1 tab PO DAILY 0 03/31/19 Metoprolol Succinate [Toprol XL 100 mg Tablet] 100 mg PO DAILY 03/31/19 Naproxen [Naprosyn] 500 mg PO Q12HP PRN 03/31/19 Nitroglycerin [Nitrostat 0.4 mg (1/150 Gr) Tabs 25/Bottle] 0.4 mg SL Q5MP PRN 03/31/19 Omeprazole 40 mg PO DAILY 03/31/19 Ondansetron HCl [Zofran 8 mg Tablet] 8 mg PO TIDP PRN 03/31/19 Ranitidine HCl [Zantac] 150 mg PO BID 03/31/19 Tiotropium Br/Olodaterol HCl [Stiolto Respimat Inhal [place]] 2 puff IH DAILY 03/31/19 Ciprofloxacin HCl [Cipro 500 mg Tablet] 500 mg PO BID #14 tablet 04/01/19 Allergies/Adverse Reactions: cephalexin [From Keflex] Allergy (Verified 12/31/18 20:38) tramadol Allergy (Verified 12/31/18 20:38) Review of Systems Constitutional: ABSENT: chills, fever(s), headache(s), weight gain, weight loss Eyes: ABSENT: visual disturbances Ears: ABSENT: hearing changes Cardiovascular: ABSENT: chest pain, dyspnea on exertion, edema, orthropnea, palpitations Respiratory: ABSENT: cough, hemoptysis Gastrointestinal: PRESENT: vomiting Genitourinary: ABSENT: dysuria, hematuria Musculoskeletal: ABSENT: joint swelling Integumentary: ABSENT: rash, wounds Neurological: ABSENT: abnormal gait, abnormal speech, confusion, dizziness, focal weakness, syncope Psychiatric: ABSENT: anxiety, depression, homidical ideation, suicidal ideation Endocrine: ABSENT: cold intolerance, heat intolerance, menstrual abnormalities, polydipsia, polyuria Hematologic/Lymphatic: ABSENT: easy bleeding, easy bruising, lymphadenopathy Physical Exam Vital Signs: Temp Pulse Resp BP Pulse Ox 98.4 F 82 16 150/92 H 95 03/31/19 20:05 03/31/19 20:05 03/31/19 20:05 03/31/19 20:05 03/31/19 20:05 Intake & Output 03/30/19 03/31/19 04/01/19 06:59 06:59 06:59 Weight 95.5 kg General appearance: PRESENT: no acute distress, well-developed, well-nourished Head exam: PRESENT: atraumatic, normocephalic Eye exam: PRESENT: conjunctiva pink, EOMI, PERRLA Ear exam: PRESENT: normal external ear exam Mouth exam: PRESENT: moist, tongue midline Neck exam: PRESENT: full ROM Respiratory exam: PRESENT: clear to auscultation jada Cardiovascular exam: PRESENT: RRR, +S1, +S2 Pulses: PRESENT: normal dorsalis pedis pul, +2 pedal pulses bilateral Vascular exam: PRESENT: normal capillary refill GI/Abdominal exam: PRESENT: hernia, normal bowel sounds, soft Rectal exam: PRESENT: deferred Neurological exam: PRESENT: alert, awake, oriented to person, oriented to place, oriented to time, oriented to situation, CN II-XII grossly intact Psychiatric exam: PRESENT: appropriate affect, normal mood Skin exam: PRESENT: dry, intact, warm Results Laboratory Results: 03/31/19 20:58 03/31/19 20:58 03/31/19 03/31/19 03/31/19 20:58 20:58 22:00 WBC 5.4 RBC 4.71 Hgb 14.9 Hct 44.3 MCV 94 MCH 31.6 MCHC 33.5 RDW 14.6 H Plt Count 221 Sodium 139.3 Potassium 3.9 Chloride 100 Carbon Dioxide 34 H Anion Gap 5 BUN 17 Creatinine 1.33 H Est GFR ( Amer) > 60 Glucose 104 Calcium 9.2 Total Bilirubin 0.7 AST 32 Alkaline Phosphatase 83 Total Protein 6.4 Albumin 3.6 Urine Color YELLOW Urine Appearance CLEAR Urine pH 5.0 Ur Specific [place] 1.029 Urine Protein 30 H Urine Glucose (UA) NEGATIVE Urine Ketones TRACE H Urine Blood MODERATE H Urine Nitrite NEGATIVE Ur Leukocyte Esterase NEGATIVE Urine WBC (Auto) 2 Urine RBC (Auto) 32 Assessment & Plan - Diagnosis (1) Persistent vomiting Is this a current diagnosis for this admission?: Yes Plan: Patient with persistent vomiting the etiology is most likely UTI, admitted for hydration and initiation of antibiotic (2) Urinary tract infection Qualifiers: Urinary tract infection type: acute cystitis Hematuria presence: without hematuria Qualified Code(s): N30.00 - Acute cystitis without hematuria Is this a current diagnosis for this admission?: Yes
[2019-03-31] MEDS ORDERED: FAMOTIDINE 20 MG TABLET PO ONE (23:15)
[2019-03-31] MEDS ORDERED: FLUTICASONE/UMECLIDIN/VILANTER 100-62.5-25 MCG/DOSE IH ONE (23:15)
[2019-04-01] MEDS: HYDROMORPHONE HCL INJ/PF 2 MG/ML AMPULE IV PRN ×3 (03:28→15:14)
[2019-04-01] MEDS: ONDANSETRON HCL INJ/PF 4 MG/2 ML SDV IV PRN (03:28)
[2019-04-01] MEDS ORDERED: PANTOPRAZOLE SODIUM 40 MG TABLET.DR PO SCH (06:00)
[2019-04-01] MEDS: NORMAL SALINE 1000 ML 1,000 ML IV PRN (06:49)
--- NOTE | 2019-04-01 08:36 | RADIOLOGY REPORT (SQ) ---
EXAM DESCRIPTION: CT ABD/PELVIS WITH IV ONLY COMPLETED DATE/TIME: 04/01/2019 8:19 am REASON FOR STUDY: Nausea/Vomitin R10.9 UNSPECIFIED ABDOMINAL PAIN R11.2 NAUSEA WITH VOMITING, UNSP ECIFIED COMPARISON: 12/31/2018 TECHNIQUE: CT scan of the abdomen and pelvis performed using helical scanning technique with dynamic intravenous contrast injection. No oral contrast. Images reviewed with lung, soft tissue, and bone windows. Reconstructed coronal and sagittal MPR images reviewed. Delayed images for evaluation of the urinary system also acquired. All images stored on PACS. All CT scanners at this facility use dose modulation, iterative reconstruction, and/or weight based d osing when appropriate to reduce radiation dose to as low as reasonably achievable (ALARA). [facility]: Dose Right [facility]: CareDose [facility]: Dose Right [facility]: Teradose 4D [facility]: [employer] CONTRAST TYPE AND DOSE: contrast/concentration: Isovue 350.00 mg/ml; Total Contrast Delivered: 100.0 ml; Total Saline Delivered: 72.0 ml RENAL FUNCTION: Not available at time of dictation. RADIATION DOSE: CT Rad equipment meets quality standard of care and radiation dose reduction techniq ues were employed. CTDIvol: 11.6 - 13.7 mGy. DLP: 1414 mGy-cm.. LIMITATIONS: None. FINDINGS: LOWER CHEST: There is right basilar atelectasis. There is bilateral pleural thickening. Minimal atelectasis in the left base. LIVER: There is decreased attenuation throughout the liver consistent with fatty infiltration. No fo diamante lesions. SPLEEN: Normal size. No focal lesions. PANCREAS: No masses. No significant calcifications. No adjacent inflammation or peripancreatic fluid collections. Pancreatic duct not dilated. GALLBLADDER: No identified stones by CT criteria. No inflammatory changes to suggest cholecystitis. ADRENAL GLANDS: No significant masses or asymmetry. RIGHT KIDNEY AND URETER: No solid masses. No significant calcifications. No hydronephrosis or hyd roureter. LEFT KIDNEY AND URETER: No solid masses. No significant calcifications. No hydronephrosis or hydr oureter. AORTA AND VESSELS: There is a 3.0 x 3.7 cm infrarenal abdominal aortic aneurysm. There is considerab le mural thrombus. Aneurysm extends to just above the bifurcation. RETROPERITONEUM: No retroperitoneal adenopathy, hemorrhage or masses. BOWEL AND PERITONEAL CAVITY: Scattered diverticuli. No acute diverticulitis. APPENDIX: Surgically absent. PELVIS: No mass. No free fluid. Normal bladder. ABDOMINAL WALL: There is a left anterior abdominal wall hernia containing omental fat only. This is increased in size since prior study. BONES: No significant or acute findings. OTHER: No other significant finding. IMPRESSION: 1. 3.0 x 3.7 cm infrarenal abdominal aortic aneurysm. No evidence of leak. This has s lightly increased in size since prior study. 2. Scattered diverticuli. No acute diverticulitis. 3. Anterior abdominal wall hernia containing omental fat only. 4. Minimal bibasilar atelectasis and pleural thickening. Right greater than left. COMMENT: AAA Size: Follow-up Recommendation 3.5-3.9 cm Every 12 months *Based upon the Society for Vascular Surgery Guidelines: J Vasc Surg. 2009 Oct;50(4 Suppl):S2-49 *For aortas of maximum diameter of 2.6-2.9 cm meeting the criteria for AAA (?1.5 x proximal normal se gment) TECHNICAL DOCUMENTATION: JOB ID: [id number] Quality ID # [id number]: Final reports with documentation of one or more dose reduction techniques (e.g., Au tomated exposure control, adjustment of the mA and/or kV according to patient size, use of iterative reconstruction technique) 2010 [employer]- All Rights Reserved Reading location - IP/workstation name: [email or web address]
[2019-04-01] MEDS ORDERED: HYDROCHLOROTHIAZIDE 12.5 MG TABLET PO SCH (10:00)
[2019-04-01] MEDS ORDERED: METOPROLOL SUCCINATE 50 MG TAB.SR.24H PO SCH (10:00)
[2019-04-01] MEDS ORDERED: FLUTICASONE/UMECLIDIN/VILANTER 100-62.5-25 MCG/DOSE IH SCH (10:00)
[2019-04-01] MEDS ORDERED: LISINOPRIL 10 MG TABLET PO SCH (10:00)
[2019-04-01] MEDS ORDERED: FAMOTIDINE 20 MG TABLET PO SCH (10:00)
[2019-04-01] MEDS ORDERED: CIPROFLOXACIN 400 MG/D5W RTU 400 MG/200 ML RTUPB IV SCH (14:00)
[2019-04-01 16:52] VITALS: BP 118/77
--- NOTE | 2019-04-01 17:41 | PDOC DISCHARGE SUMMARY ---
General - Admit/Disc Date/PCP Admission Date/Primary Care Provider: 03/31/19 19:31 TUSHAR RODRIGUES MD Discharge Date: 04/01/19 - Discharge Diagnosis (1) Persistent vomiting Is this a current diagnosis for this admission?: Yes (2) Urinary tract infection Is this a current diagnosis for this admission?: Yes - Additional Information Discharge Activity: Activity As Tolerated, Balance Activity w/Rest Prescriptions: RX: Ciprofloxacin HCl [Cipro 500 mg Tablet] 500 mg PO BID #14 tablet Home Medications: RX: Aspirin [Aspirin 81 mg Chewable Tablet] 81 mg PO DAILY 03/31/19 RX: Atorvastatin Calcium [Lipitor 80 mg Tablet] 80 mg PO QHS 03/31/19 RX: Carvedilol [Coreg 6.25 mg Tablet] 6.25 mg PO Q12 03/31/19 RX: Fluticasone/Umeclidin/Vilanter [Trelegy 100-62.5-25 Mcg Ellipta 14 Dose/Dpi] 1 puff IH DAILY 03/31/19 RX: Lisinopril/Hydrochlorothiazide [Zestoretic 20-12.5 mg Tablet] 1 tab PO DAILY 03/31/19 RX: Metoprolol Succinate [Toprol XL 100 mg Tablet] 100 mg PO DAILY 03/31/19 RX: Naproxen [Naprosyn] 500 mg PO Q12HP PRN 03/31/19 RX: Nitroglycerin [Nitrostat 0.4 mg (1/150 Gr) Tabs 25/Bottle] 0.4 mg SL Q5MP PRN 03/31/19 RX: Omeprazole 40 mg PO DAILY 03/31/19 RX: Ondansetron HCl [Zofran 8 mg Tablet] 8 mg PO TIDP PRN 03/31/19 RX: Ranitidine HCl [Zantac] 150 mg PO BID 03/31/19 RX: Tiotropium Br/Olodaterol HCl [Stiolto Respimat Inhal [place]] 2 puff IH DAILY 03/31/19 RX: Ciprofloxacin HCl [Cipro 500 mg Tablet] 500 mg PO BID #14 tablet 04/01/19 History of Present Illness History of Present Illness: JAMEEL HORN III is a 58 year old male, He came to the office today for evaluation of a 2-day history of vomiting, it was persistent, there was no diarrhea he also complained of dysuria. The apparent cause of the vomiting is not clear in this patient he has on examination in the office abdominal hernia, because the etiology of the vomiting is not apparent in the office he was admitted directly from outpatient into the hospital for evaluation. A CT scan of the abdomen and pelvis with IV contrast was obtained, it demonstrated a right basilar atelectasis also found was bilateral pleural thickening with minimal atelectasis in the left base there was no mass identified there was no stone. There was no diverticulitis there was diverticulosis, the urine dipstick was grossly abnormal suggesting Urinary tract infection Hospital Course Hospital Course: Patient was admitted for the management of persistent vomiting, UTI, CAT scan of the abdomen and pelvis with contrast was negative, the urinalysis suggests infection consistent with his symptoms of dysuria. He was treated with intravenous infusion, normal saline, IV ciprofloxacin, patient be discharged home today. He was admitted for observation, he will continue outpatient antibiotic for few more days. Physical Exam Vital Signs: Temp Pulse Resp BP Pulse Ox 97.9 F 63 18 118/77 95 04/01/19 16:00 04/01/19 16:00 04/01/19 16:00 04/01/19 16:00 04/01/19 16:00 Intake & Output 03/31/19 04/01/19 04/02/19 06:59 06:59 06:59 Intake Total 890 Balance 890 Weight 95.5 kg General appearance: PRESENT: no acute distress, well-developed, well-nourished Head exam: PRESENT: atraumatic, normocephalic Eye exam: PRESENT: conjunctiva pink, EOMI, PERRLA Ear exam: PRESENT: normal external ear exam Mouth exam: PRESENT: moist, tongue midline Neck exam: PRESENT: full ROM Respiratory exam: PRESENT: clear to auscultation jada Cardiovascular exam: PRESENT: RRR, +S1, +S2 Vascular exam: PRESENT: normal capillary refill GI/Abdominal exam: PRESENT: normal bowel sounds, soft Rectal exam: PRESENT: deferred Neurological exam: PRESENT: alert, awake, oriented to person, oriented to place, oriented to time, oriented to situation, CN II-XII grossly intact Psychiatric exam: PRESENT: appropriate affect, normal mood Skin exam: PRESENT: dry, intact, warm Results Laboratory Results: 03/31/19 20:58 03/31/19 20:58 03/31/19 03/31/19 03/31/19 20:58 20:58 22:00 WBC 5.4 RBC 4.71 Hgb 14.9 Hct 44.3 MCV 94 MCH 31.6 MCHC 33.5 RDW 14.6 H Plt Count 221 Sodium 139.3 Potassium 3.9 Chloride 100 Carbon Dioxide 34 H Anion Gap 5 BUN 17 Creatinine 1.33 H Est GFR ( Amer) > 60 Glucose 104 Calcium 9.2 Total Bilirubin 0.7 AST 32 Alkaline Phosphatase 83 Total Protein 6.4 Albumin 3.6 Urine Color YELLOW Urine Appearance CLEAR Urine pH 5.0 Ur Specific [place] 1.029 Urine Protein 30 H Urine Glucose (UA) NEGATIVE Urine Ketones TRACE H Urine Blood MODERATE H Urine Nitrite NEGATIVE Ur Leukocyte Esterase NEGATIVE Urine WBC (Auto) 2 Urine RBC (Auto) 32 Impressions: Abdomen/Pelvis CT 04/01/19 00:00 IMPRESSION: 1. 3.0 x 3.7 cm infrarenal abdominal aortic aneurysm. No evidence of leak. This has slightly increased in size since prior study. 2. Scattered diverticuli. No acute diverticulitis. 3. Anterior abdominal wall hernia containing omental fat only. 4. Minimal bibasilar atelectasis and pleural thickening. Right greater than left. Qualifiers - * PATIENT BEING DISCHARGED WITH ANY OF THE FOLLOWING DIAGNOSIS: No VTE patient discharged on overlapping Therapy?: No Reason(s) for not prescribing Overlap Therapy:: Not indicated Stroke Pt being discharged on Anti-thrombolytic therapy?: No Reason(s) for not prescribing Anti-thrombolytic therapy:: Not indicated Stroke Pt being discharged on Anti-coagulation therapy?: No Reason(s) for not prescribing Anti-coagulation therapy:: Not indicated Stroke Pt being discharged on Statins?: No Reason(s) for not prescribing Statins therapy:: Not indicated NH Pt being discharged on Aspirin therapy?: No Reason(s) for not prescribing Aspirin therapy:: Not indicated NH Pt being discharged on Statins?: No Reason(s) for not prescribing Statin therapy:: Not indicated NH Pt discharged ACEI/ARBS?: No Reason(s) for not prescribing ACEI/ARBS:: Not indicated Acute Heart Failure - Is this a Heart Failure Patient?: No Follow-up Appointment scheduled within 7 days?: Yes
== END 2019-04-01 17:15 | disposition home or self-care (01) ==
LOC: 4N 19:31
PROVIDERS: ADMIT Internal Medicine; ATTEND Internal Medicine
DX: R11.2 Nausea with vomiting, unspecified (principal); N30.00 Acute cystitis without hematuria; K43.9 Ventral hernia without obstruction or gangrene; K57.90 Diverticulosis of intestine, part unspecified, without perforation or abscess without bleeding; I71.4 Abdominal aortic aneurysm, without rupture; J98.11 Atelectasis; I25.10 Atherosclerotic heart disease of native coronary artery without angina pectoris; K21.9 Gastro-esophageal reflux disease without esophagitis; E78.5 Hyperlipidemia, unspecified; I10 Essential (primary) hypertension; F17.200 Nicotine dependence, unspecified, uncomplicated; J44.9 Chronic obstructive pulmonary disease, unspecified; Z95.1 Presence of aortocoronary bypass graft; Z79.82 Long term (current) use of aspirin; Z79.899 Other long term (current) drug therapy
CPT/HCPCS: 36415; 87040; 87086; 82962; 85027; 80076; 80048; 81001; 74177; A9270 ×3; J1170 ×2; J2405 ×2; J7030 ×2; J0744; J3490 ×2; G0378

== ENCOUNTER → 2019-10-20 | Outpatient (CLI) | payer MEDICARE, MEDICAID ==
--- NOTE | 2019-10-20 16:01 | RADIOLOGY REPORT (SQ) ---
EXAM DESCRIPTION: CT ABD/PELVIS WITH IV ONLY COMPLETED DATE/TIME: 10/20/2019 2:59 pm REASON FOR STUDY: I71.4 ABDOMINAL AORTIC ANEURYSM, WITHOUT RUPTURE I71.4 ABDOMINAL AORTIC ANEURYSM, WITHOUT RUPTURE COMPARISON: 04/01/2019 TECHNIQUE: CT scan of the abdomen and pelvis performed using helical scanning technique with dynamic intravenous contrast injection. No oral contrast. Images reviewed with lung, soft tissue, and bone windows. Reconstructed coronal and sagittal MPR images reviewed. Delayed images for evaluation of the urinary system also acquired. All images stored on PACS. All CT scanners at this facility use dose modulation, iterative reconstruction, and/or weight based d osing when appropriate to reduce radiation dose to as low as reasonably achievable (ALARA). [facility]: Dose Right [facility]: CareDose [facility]: Dose Right [facility]: Teradose 4D [facility]: [employer] CONTRAST TYPE AND DOSE: contrast/concentration: Isovue 350.00 mg/ml; Total Contrast Delivered: 100.0 ml; Total Saline Delivered: 72.0 ml RENAL FUNCTION: Creatinine 1.3 RADIATION DOSE: CT Rad equipment meets quality standard of care and radiation dose reduction techniq ues were employed. CTDIvol: 15.2 - 15.3 mGy. DLP: 1776 mGy-cm.. LIMITATIONS: None. FINDINGS: LOWER CHEST: No significant findings. No nodules or infiltrates. LIVER: Normal size. No masses. No dilated ducts. SPLEEN: Normal size. No focal lesions. PANCREAS: No masses. No significant calcifications. No adjacent inflammation or peripancreatic fluid collections. Pancreatic duct not dilated. GALLBLADDER: No identified stones by CT criteria. No inflammatory changes to suggest cholecystitis. ADRENAL GLANDS: No significant masses or asymmetry. RIGHT KIDNEY AND URETER: No solid masses. No significant calcifications. No hydronephrosis or hyd roureter. LEFT KIDNEY AND URETER: No solid masses. No significant calcifications. No hydronephrosis or hydr oureter. AORTA AND VESSELS: There is a 3.43 cm aneurysm of the infrarenal abdominal aorta. RETROPERITONEUM: No retroperitoneal adenopathy, hemorrhage or masses. BOWEL AND PERITONEAL CAVITY: Very mild diverticulosis with no associated inflammation. No obvious christy wel mass. APPENDIX: Surgically absent. PELVIS: No mass. No free fluid. Normal bladder. ABDOMINAL WALL: 3 cm wide ventral hernia on the left on image 57 contains only fat. BONES: No significant or acute findings. OTHER: No other significant finding. IMPRESSION: 3.43 cm aneurysm of the infrarenal abdominal aorta. Mild diverticulosis coli. Fat cont aining ventral hernia. COMMENT: AAA Size: Follow-up Recommendation 3.0-3.4 cm Every 3 years *Based upon the Society for Vascular Surgery Guidelines: J Vasc Surg. 2009 Oct;50(4 Suppl):S2-49 *For aortas of maximum diameter of 2.6-2.9 cm meeting the criteria for AAA (?1.5 x proximal normal se gment) TECHNICAL DOCUMENTATION: JOB ID: [id number] Quality ID # [id number]: Final reports with documentation of one or more dose reduction techniques (e.g., Au tomated exposure control, adjustment of the mA and/or kV according to patient size, use of iterative reconstruction technique) 2010 [employer]- All Rights Reserved Reading location - IP/workstation name: [email or web address]
== END ==
LOC: RAD 14:35
PROVIDERS: ATTEND Internal Medicine
DX: I71.4 Abdominal aortic aneurysm, without rupture (principal)
CPT/HCPCS: 74177; 82565

== ENCOUNTER 2020-01-04 21:31 | Emergency (ER) | payer MEDICARE, MEDICAID ==
--- NOTE | 2020-01-04 21:46 | ER Document Report ---
ED Cardiac - General Chief Complaint: Chest Pain Stated Complaint: CHEST PAIN Time Seen by Provider: 01/04/20 21:35 Primary Care Provider: TUSHAR RODRIGUES MD [Primary Care Provider] - Follow up as needed Notes: Patient is a 59-year-old male with a history of triple bypass and [place] in 2010 in [place] who presents the emergency department with chest pain. Patient states that his pain started around 1830 this evening. States that his pain is substernal and "feels like an elephant is sitting on my chest." Also states that he has tingling in bilateral upper arms. Patient states that this feels similar to his [place] in the past. Patient states that he had a cardiac cath done by Dr. Ferrer within the past year. Dr. Ferrer is his communications associate. Patient states that he still smokes a pack of cigarettes a day. Patient states that he took 2 nitroglycerin, but continued to have pain. EMS started on nitroglycerin drip. Patient is currently on metoprolol. TRAVEL OUTSIDE OF THE [place] IN LAST 30 DAYS: No - Related Data Allergies/Adverse Reactions: cephalexin [From Keflex] Allergy (Verified 01/04/20 21:37) tramadol Allergy (Verified 01/04/20 21:37) Past Medical History - General Information source: Patient - Social History Smoking Status: Current Every Day Smoker Family History: CAD, COPD - Past Medical History Cardiac Medical History: Reports: Hx Coronary Artery Disease, Hx Heart Attack, Hx Hypercholesterolemia, Hx Hypertension Pulmonary Medical History: Reports: Hx Asthma, Hx COPD Denies: Hx Bronchitis, Hx Pneumonia Neurological Medical History: Denies: Hx Cerebrovascular Accident, Hx Seizures Renal/ Medical History: Denies: Hx Peritoneal Dialysis GI Medical History: Reports: Hx Gastroesophageal Reflux Disease Musculoskeletal Medical History: Reports Hx Arthritis Past Surgical History: Reports: Hx Cardiac Surgery - bipass, Hx Coronary Artery Bypass Graft, Hx Orthopedic Surgery - L tib/fib - Immunizations Hx Diphtheria, Pertussis, Tetanus Vaccination: Yes Hx Pneumococcal Vaccination: 09/26/18 Review of Systems - Review of Systems Notes: REVIEW OF SYSTEMS: CONSTITUTIONAL : Denies recent illness. Denies recent unintentional weight loss. Denies fever, chills, or sweats. EENT: Denies eye, ear, throat, or mouth pain, discharge, or symptoms. Denies nasal or sinus congestion. CARDIOVASCULAR: See HPI. RESPIRATORY: See HPI. GASTROINTESTINAL: Denies nausea, vomiting, and diarrhea. Denies abdominal pain. Denies constipation. GENITOURINARY: Denies difficulty urinating, burning, blood in urine, urgency or frequency. MUSCULOSKELETAL: Denies neck and back pain. See HPI. SKIN: Denies rash, itchiness, or lesions HEMATOLOGIC : Denies easy bruising or bleeding. LYMPHATIC: Denies swollen, painful, enlarged glands. NEUROLOGICAL: Denies no numbness or tingling denies weakness. Denies headache. Denies altered mental status. Denies alteration in speech. PSYCHIATRIC: Denies stress, anxiety, alteration in sleep patterns, or depression. All other systems reviewed and negative. Physical Exam - Vital signs Vitals: Pulse Ox 95 01/04/20 21:34 - Notes Notes: PHYSICAL EXAMINATION: GENERAL: Appears chronically ill, no acute distress. HEAD: Normocephalic, atraumatic. EYES: PERRL, conjunctiva normal, all extraocular movements intact, sclera nonicteric ENT: Moist mucous membranes. NECK: Supple, no noticeable swelling, redness, rash. Normal range of motion. LUNGS: Equal breath sounds bilaterally and clear to auscultation. No wheezes rales or rhonchi. CARDIOVASCULAR: S1-S2, regular rate, regular rhythm. Radial pulses 2+, normal. ABDOMEN: Normoactive bowel sounds. Soft, nontender, no guarding, no rebound tenderness, and no masses palpated. EXTREMITIES: Normal strength and range of motion, no pitting or edema. No cyanosis. NEUROLOGICAL: Moves all extremities upon command. Strength 5/5 in all extremit ies. PSYCH: Normal mood, normal affect. SKIN: Warm, dry. No rash, lesions, ulcerations noted. Normal skin turgor. Course - Re-evaluation Re-evalutation: 01/04/20 22:01 Patient was taken off nitroglycerin drip because his blood pressure is 113/68. We will start Nitropaste. Current blood pressure at this time is 118/79. 01/04/20 22:50 Hematology is unremarkable. No leukocytosis or anemia noted. Chemistries show a slight elevated creatinine of 1.38. BNP is 423. Chest x-ray is unremarkable. Lung sounds are clear. Patient's troponin is 0.253. We will start the patient on heparin drip. Called [facility] for transfer, as we do not have cardiac cath here. 01/04/20 23:26 I spoke with ABBIE Powell from cardiology. She would like the patient started on Lovenox. Patient will be admitted under Dr. Dan to cardiology telemetry unit. 01/05/20 01:18 Transport team is at bedside. I assessed the patient and patient is stable for transport to [facility]. - Vital Signs Vital signs: Temp Pulse Resp BP Pulse Ox 97.8 F 56 L 19 116/88 H 96 01/05/20 01:24 01/05/20 01:24 01/05/20 01:24 01/05/20 01:24 01/05/20 01:24 - Laboratory Result Diagrams: 01/04/20 21:53 01/04/20 21:53 Laboratory results interpreted by me: 01/04/20 01/04/20 01/04/20 21:53 21:53 21:53 RDW 14.1 H Creatinine 1.38 H Est GFR (MDRD) Non-Af 53 L NT-Pro-B Natriuret Pep 423 H Discharge - Discharge Clinical Impression: NSTEMI (non-ST elevated myocardial infarction) Chest pain Qualifiers: Chest pain type: unspecified Qualified Code(s): R07.9 - Chest pain, unspecified Condition: Fair Disposition: [facility]ICAL [facility]ESS [facility]ITAL Admitting Provider: Dr. Dan Referrals: TUSHAR RODRIGUES MD [Primary Care Provider] - Follow up as needed
[2020-01-04] MEDS ORDERED: NITROGLYCERIN 2% OINTMENT 1 GM PACKET TP ONE (21:48)
[2020-01-04] MEDS ORDERED: ONDANSETRON HCL INJ/PF 4 MG/2 ML SDV IV ONE (21:57)
[2020-01-04 22:10] LABS: ABSOLUTE EOSINOPHILS # (AUTO) 0.1 10^3/uL (0.0-0.6); ABSOLUTE LYMPHOCYTES (AUTO) 1.9 10^3/uL (0.5-4.7); ABSOLUTE MONOCYTES (AUTO) 0.8 10^3/uL (0.1-1.4); ABSOLUTE NEUT (AUTO) 4.6 10^3/uL (1.7-8.2); BASOPHILS % (AUTO) 0.6 % (0-2); EOSINOPHILS % (AUTO) 1.8 % (0-6); HEMATOCRIT 46.3 % (37.9-51.0); HEMOGLOBIN 15.6 g/dL (13.5-17.0); LYMPHOCYTES % (AUTO) 25.6 % (13-45); MEAN CORPUSCULAR HEMOGLOBIN 32.3 pg (27.0-33.4); MEAN CORPUSCULAR HGB CONC 33.8 g/dL (32.0-36.0); MEAN CORPUSCULAR VOLUME 96 fl (80-97); MONOCYTES % (AUTO) 10.5 % (3-13); PLATELET COUNT 219 10^3/uL (150-450); RED BLOOD COUNT 4.84 10^6/uL (4.35-5.55); RED CELL DISTRIBUTION WIDTH 14.1 % (11.5-14.0); SEGMENTED NEUTROPHILS % (AUTO) 61.5 % (42-78); TOTAL CELLS COUNTED % (AUTO) 100 %; WHITE BLOOD COUNT 7.4 10^3/uL (4.0-10.5)
[2020-01-04 22:25] LABS: ALBUMIN 3.6 g/dL (3.5-5.0); ALKALINE PHOSPHATASE 87 U/L (38-126); ASPARTATE AMINO TRANSFERASE 20 U/L (17-59); BILIRUBIN,TOTAL 0.3 mg/dL (0.2-1.3); BLOOD UREA NITROGEN 18 mg/dL (7-20); CALCIUM 8.7 mg/dL (8.4-10.2); CARBON DIOXIDE 28 mmol/L (22-30); CREATINE KINASE 79 U/L (55-170); GLUCOSE 107 mg/dL (75-110); POTASSIUM 3.7 mmol/L (3.6-5.0); TOTAL PROTEIN 6.3 g/dL (6.3-8.2)
[2020-01-04 22:27] LABS: ANION GAP 5 (5-19); CHLORIDE 107 mmol/L (98-107)
--- NOTE | 2020-01-04 22:35 | RADIOLOGY REPORT (SQ) ---
XR CHEST 1 VIEW HISTORY: CHEST PAIN. COMPARISON: 10/10/2018 FINDINGS: The heart size is within normal limits. There is no pulmonary vascular congestion. No consolidation, pleural effusion, or pneumothorax is seen. The bony structures are preserved. The left hemidiaphragm is elevated. There are post surgical changes of CABG. IMPRESSION: No evidence of acute cardiopulmonary disease.
[2020-01-04 22:37] LABS: CREATINE KINASE MB 3.37 ng/mL (<4.55)
[2020-01-04 22:41] LABS: TROPONIN I 0.253 ng/mL
[2020-01-04] MEDS ORDERED: HEPARIN SOD (PORCINE) 1,000 UNIT/ML 10 ML VIAL IV ONE (22:51)
[2020-01-04] MEDS ORDERED: HEPARIN SODIUM,PORCINE/D5W 25,000 UNIT/250 ML RTUINJ IV PRN (22:51)
[2020-01-04 23:04] LABS: INTERNATIONAL RATION (INR) 0.91; PROTHROMBIN TIME 12.2 SEC (11.4-15.4)
[2020-01-04 23:05] LABS: PARTIAL THROMBOPLASTIN TIME 30.1 SEC (23.5-35.8)
[2020-01-04] MEDS ORDERED: ENOXAPARIN SODIUM INJ 100 MG/1 ML DISP.SYRIN SUBCUT SCH (23:45)
[2020-01-05 01:25] VITALS: BP 116/88
[2020-01-05] MEDS ORDERED: HEPARIN SOD (PORCINE) 1,000 UNIT/ML 10 ML VIAL IV PRN (01:52)
--- NOTE | 2020-01-05 09:33 | EKG REPORT ---
SEVERITY:- ABNORMAL ECG - SINUS RHYTHM VENTRICULAR BIGEMINY REPOL ABNRM SUGGESTS ISCHEMIA, LATERAL LEADS : Confirmed by: Sue Sparks MD 05-Jan-2020 09:33:00
== END 2020-01-05 01:45 | disposition short-term general hospital (02) ==
LOC: ER 21:31
DX: I21.4 Non-ST elevation (NSTEMI) myocardial infarction (principal); R07.9 Chest pain, unspecified; F17.210 Nicotine dependence, cigarettes, uncomplicated; E78.00 Pure hypercholesterolemia, unspecified; I10 Essential (primary) hypertension; Z95.1 Presence of aortocoronary bypass graft; Z88.3 Allergy status to other anti-infective agents; Z88.6 Allergy status to analgesic agent; I25.2 Old myocardial infarction
CPT/HCPCS: 93005; 99285; 96372; 96374; 36415; 82553; 82550; 85025; 85610; 85730; 80053; 84484; 83880; 71045; 93010; A9270; J1644; J2405; J1650

== ENCOUNTER 2020-08-08 18:10 | Emergency (ER) | payer MEDICARE, MEDICAID ==
--- NOTE | 2020-08-08 19:00 | ER Document Report ---
ED General - General Chief Complaint: Low Blood Pressure Stated Complaint: WEAKNESS Time Seen by Provider: 08/08/20 18:58 Primary Care Provider: TUSHAR RODRIGUES MD [Primary Care Provider] - Follow up as needed TRAVEL OUTSIDE OF THE [place] IN LAST 30 DAYS: No - HPI Notes: 60-year-old male presents with low blood pressure reading. Patient states that he went to cardiac rehab today, he states that he told his blood pressure was too low, states it was 90 something over 86, states that he was told to go home. Patient states that he did not feel well this morning, he had an episode of dizziness with standing. He states that when his found out she called EMS. He states that EMS told him that he looked nicholas and they thought that he was having a heart attack. Patient currently denies complaints. He states he has not had any chest pain today. No shortness of breath, abdominal pain, nausea or vomiting. He reports compliance with all of his medications. He states that he recently was increased to 4 times a day from 3 times a day on his pain medications. Received 1 L LR with EMS. Patient took 325 aspirin at home. - Related Data Allergies/Adverse Reactions: cephalexin [From Keflex] Allergy (Verified 08/08/20 18:29) tramadol Allergy (Verified 08/08/20 18:29) Home Medications: trplemdo xr. lisinopril / hctz. trelegy. meloxcicam. atorvastatin. plavix. metoprolol. omeptazole. meclizine Past Medical History - General Information source: Patient - Social History Smoking Status: Current Every Day Smoker Chew tobacco use (# tins/day): No Frequency of alcohol use: None Drug Abuse: None Family History: CAD, COPD Patient has homicidal ideation: No - Past Medical History Cardiac Medical History: Reports: Hx Coronary Artery Disease, Hx Heart Attack, Hx Hypercholesterolemia, Hx Hypertension Pulmonary Medical History: Reports: Hx Asthma, Hx COPD Denies: Hx Bronchitis, Hx Pneumonia Neurological Medical History: Denies: Hx Cerebrovascular Accident, Hx Seizures Renal/ Medical History: Denies: Hx Peritoneal Dialysis GI Medical History: Reports: Hx Gastroesophageal Reflux Disease Musculoskeletal Medical History: Reports Hx Arthritis Past Surgical History: Reports: Hx Cardiac Surgery - bipass, Hx Coronary Artery Bypass Graft, Hx Orthopedic Surgery - L tib/fib - Immunizations Hx Diphtheria, Pertussis, Tetanus Vaccination: Yes Hx Pneumococcal Vaccination: 09/26/18 Review of Systems - Review of Systems Constitutional: denies: Fever EENT: No symptoms reported Cardiovascular: denies: Chest pain Respiratory: denies: Short of breath Gastrointestinal: denies: Abdominal pain, Diarrhea, Nausea, Vomiting Genitourinary: No symptoms reported Male Genitourinary: No symptoms reported Musculoskeletal: No symptoms reported Skin: No symptoms reported Hematologic/Lymphatic: No symptoms reported Neurological/Psychological: No symptoms reported Physical Exam - Vital signs Vitals: Resp Pulse Ox 20 94 08/08/20 18:22 08/08/20 18:22 - General General appearance: Appears well, Alert In distress: None - HEENT Head: Normocephalic, Atraumatic Extraocular movements intact: Yes Pupils: PERRL - Respiratory Breath sounds: Normal - Cardiovascular Rhythm: Regular Heart sounds: Normal auscultation - Abdominal Inspection: Obese Tenderness: Nontender - Extremities General upper extremity: Normal ROM General lower extremity: Normal ROM. No: Edema - Neurological Neuro grossly intact: Yes Cognition: Normal Orientation: AAOx4 - Psychological Associated symptoms: Normal affect - Skin Skin Temperature: Warm Course - Re-evaluation Re-evalutation: 60-year-old male presents with a low blood pressure reading this morning at cardiac rehab. Had episode of dizziness when standing. No chest pain or shortness of breath at any point today. He currently denies complaints. Vital signs stable currently. I did review his medications. He is on Entresto, lisinopril/hydrochlorothiazide, metoprolol. It appears that his PCP is prescribing some medications and his claim investigator is prescribing others. Concerned that he is volume down from over diuresis or from possible cumulative effects of multiple classes of medications. His EKG is similar to previous. Laboratory evaluation has been ordered. 08/08/20 20:43 No leukocytosis or left shift. No acute anemia. Electrolytes within normal limits. Creatinine is slightly elevated from baseline. Troponin negative. Have ordered small fluid bolus as I suspect there is a component of overdiuresis. Patient updated on results. He continues to be without complaints. 08/08/20 21:52 Fluids are finished. Patient was instructed to follow-up with his primary care doctor this week to have repeat labs. Also encouraged him to have a formal med rec done with his claim investigator as there are some meds being prescribed by cardiology and sent by the PCP. Return precautions given, stable at time of discharge. - Vital Signs Vital signs: Temp Pulse Resp BP Pulse Ox 98.0 F 26 H 117/62 95 08/08/20 22:46 08/08/20 22:01 08/08/20 22:01 08/08/20 22:01 - Laboratory Results Result Diagrams: 08/08/20 18:20 08/08/20 18:20 Laboratory Results Interpreted: 08/08/20 08/08/20 18:20 18:20 RDW 14.1 H Carbon Dioxide 31 H Anion Gap 2 L BUN 25 H Creatinine 1.81 H Est GFR ( Amer) 47 L Est GFR (MDRD) Non-Af 39 L Creatine Kinase 53 L Total Protein 6.0 L Albumin 3.4 L Critical Laboratory Results Reviewed: No Critical Results - Radiology Results Critical Radiology Results Reviewed: No Critical Results - EKG Interpretation by Me Additional EKG results interpreted by me: EKG is interpreted by me. Sinus rhythm, rate 68. Narrow QRS, QTC within normal limits. There is a PVC. No ST segment elevation. EKG is similar in appearance to EKG dated January 05, 2020 Discharge - Discharge Clinical Impression: Dehydration, Elevated serum creatinine Disposition: HOME, SELF-CARE Additional Instructions: Please follow-up with your primary care doctor this week to have your labs rechecked, as discussed your creatinine was a little bit elevated more than baseline. Please also discuss all of your medications with your claim investigator and assure that you are receiving an optimal regimen. Return to the emergency department for any concerning worsening symptoms. Referrals: TUSHAR RODRIGUES MD [Primary Care Provider] - Follow up as needed
[2020-08-08 19:01] LABS: ABSOLUTE EOSINOPHILS # (AUTO) 0.1 10^3/uL (0.0-0.6); ABSOLUTE LYMPHOCYTES (AUTO) 1.8 10^3/uL (0.5-4.7); ABSOLUTE MONOCYTES (AUTO) 0.6 10^3/uL (0.1-1.4); ABSOLUTE NEUT (AUTO) 4.2 10^3/uL (1.7-8.2); BASOPHILS % (AUTO) 0.7 % (0-2); EOSINOPHILS % (AUTO) 1.9 % (0-6); HEMATOCRIT 45.3 % (37.9-51.0); HEMOGLOBIN 15.4 g/dL (13.5-17.0); LYMPHOCYTES % (AUTO) 26.9 % (13-45); MEAN CORPUSCULAR HEMOGLOBIN 32.2 pg (27.0-33.4); MEAN CORPUSCULAR HGB CONC 33.9 g/dL (32.0-36.0); MEAN CORPUSCULAR VOLUME 95 fl (80-97); MONOCYTES % (AUTO) 8.8 % (3-13); PLATELET COUNT 216 10^3/uL (150-450); RED BLOOD COUNT 4.77 10^6/uL (4.35-5.55); RED CELL DISTRIBUTION WIDTH 14.1 % (11.5-14.0); SEGMENTED NEUTROPHILS % (AUTO) 61.7 % (42-78); TOTAL CELLS COUNTED % (AUTO) 100 %; WHITE BLOOD COUNT 6.8 10^3/uL (4.0-10.5)
[2020-08-08 19:20] LABS: ALBUMIN 3.4 g/dL (3.5-5.0); ALKALINE PHOSPHATASE 83 U/L (38-126); ASPARTATE AMINO TRANSFERASE 17 U/L (17-59); BILIRUBIN,DIRECT 0.2 mg/dL (0.0-0.4); BILIRUBIN,TOTAL 0.4 mg/dL (0.2-1.3); BLOOD UREA NITROGEN 25 mg/dL (7-20); CALCIUM 8.4 mg/dL (8.4-10.2); CARBON DIOXIDE 31 mmol/L (22-30); CHLORIDE 105 mmol/L (98-107); CREATINE KINASE 53 U/L (55-170); GLUCOSE 85 mg/dL (75-110); POTASSIUM 3.8 mmol/L (3.6-5.0)
[2020-08-08 19:27] LABS: ANION GAP 2 (5-19)
[2020-08-08 19:37] LABS: CREATINE KINASE MB 0.57 ng/mL (<4.55)
[2020-08-08 19:42] LABS: TROPONIN I < 0.012 ng/mL
[2020-08-08] MEDS ORDERED: NORMAL SALINE 500 ML IV ONE (20:26)
[2020-08-08 22:46] VITALS: BP 117/62
--- NOTE | 2020-08-09 09:53 | EKG REPORT ---
SEVERITY:- ABNORMAL ECG - SINUS RHYTHM MULTIPLE VENTRICULAR PREMATURE COMPLEXES PROBABLE LEFT ATRIAL ABNORMALITY CONSIDER INFERIOR INFARCT REPOL ABNRM SUGGESTS ISCHEMIA, LATERAL LEADS : Confirmed by: Sue Sparks MD 09-Aug-2020 09:51:51
== END 2020-08-08 22:46 | disposition home or self-care (01) ==
LOC: ER 18:10
DX: E86.0 Dehydration (principal); R79.89 Other specified abnormal findings of blood chemistry; I49.3 Ventricular premature depolarization; R03.1 Nonspecific low blood-pressure reading; R42 Dizziness and giddiness; F17.200 Nicotine dependence, unspecified, uncomplicated; I25.10 Atherosclerotic heart disease of native coronary artery without angina pectoris; I25.2 Old myocardial infarction; I10 Essential (primary) hypertension; J44.9 Chronic obstructive pulmonary disease, unspecified; Z79.899 Other long term (current) drug therapy; Z79.02 Long term (current) use of antithrombotics/antiplatelets; Z79.51 Long term (current) use of inhaled steroids; Z79.1 Long term (current) use of non-steroidal anti-inflammatories (NSAID); Z95.1 Presence of aortocoronary bypass graft
CPT/HCPCS: 93005; 99284; 96360; 36415; 82553; 82550; 85025; 80053; 84484; 93010; J7040